=== PATIENT | male | born 1950 | race Caucasian/White ===

== ENCOUNTER → 2017-07-02 15:51 | Outpatient (REF) | payer MEDICARE, OTHER, SELFPAY ==
[2017-07-02 17:11] LABS: Appearance Urine UA CLOUDY; Bilirubin Urine UA NEGATIVE (NEGATIVE); Color Urine UA YELLOW; Glucose Urine UA NEGATIVE (Normal); Ketones Urine UA NEGATIVE (NEGATIVE); Leukocyte Esterase Urine UA 3+ (NEGATIVE); Nitrite Urine UA NEGATIVE (NEGATIVE); Occult Blood Urine UA 1+ (Negative); Protein Urine UA NEGATIVE (Negative); Urobilinogen Urine UA 0.2 E.U./dL (0.2); pH Urine UA 6.5 (4.5-8.0)
[2017-07-02 17:21] LABS: RBC Urine 0-1/HPF (0-5/HPF)
[2017-07-02 17:22] LABS: Bacteria Urine Many (>30); Culture Indicated Urine Specimen Cultured; Squamous Epithelial Cell Urine None Seen; WBC Urine >100/HPF (0-5/HPF)
[2017-07-02 17:36] LABS: BUN Creatinine Ratio 12.2 (6-22); Calcium 9.3 mg/dL (8.4-10.2); Estimated Glomerular Filt Rate 38.1 mL/min (>60); Glucose 81 mg/dL (80-110); HEMOLYSIS < 15 (0-50); Potassium 4.9 mmol/L (3.4-5.1); Sodium 142 mmol/L (137-145)
== END ==
LOC: LAB 15:51
PROVIDERS: Family Provider Family Medicine; PCP Family Medicine; Visit Provider Family Medicine
DX: N39.0 Urinary tract infection, site not specified (principal); N18.9 Chronic kidney disease, unspecified
CPT/HCPCS: 80048; 81001; 87086; 87186

== ENCOUNTER → 2017-07-02 16:04 | Outpatient (CLI) | payer MEDICARE, OTHER, SELFPAY | PROVIDERS: Family Provider Family Medicine; PCP Family Medicine; Visit Provider Family Medicine | DX: N39.0 Urinary tract infection, site not specified (principal); N28.9 Disorder of kidney and ureter, unspecified ==

== ENCOUNTER → 2017-08-06 16:06 | Outpatient (CLI) | payer MEDICARE, SELFPAY ==
[2017-08-06 16:13] LABS: Bacteria Urine None Seen
[2017-08-06 17:04] LABS: Appearance Urine UA CLOUDY; Bilirubin Urine UA NEGATIVE (NEGATIVE); Color Urine UA YELLOW; Glucose Urine UA NEGATIVE (Normal); Ketones Urine UA NEGATIVE (NEGATIVE); Leukocyte Esterase Urine UA 3+ (NEGATIVE); Nitrite Urine UA Negative (Negative); Occult Blood Urine UA TRACE-INTACT (Negative); Protein Urine UA NEGATIVE (Negative); Specific Gravity Urine UA <=1.005 (1.000-1.035); Urobilinogen Urine UA 0.2 E.U./dL (0.2)
[2017-08-06 17:13] LABS: Culture Indicated Urine Specimen Cultured; RBC Urine 1-5/HPF (0-5/HPF); WBC Urine 30-100/HPF (0-5/HPF)
[2017-08-06 17:20] LABS: Blood Urea Nitrogen 23 mg/dL (9-20); Calcium 9.6 mg/dL (8.4-10.2); Carbon Dioxide 25 mmol/L (22-32); Chloride 106 mmol/L (98-107); Estimated Glomerular Filt Rate 31.9 mL/min (>60); Glucose 72 mg/dL (80-110); HEMOLYSIS < 15 (0-50); Potassium 4.8 mmol/L (3.4-5.1); Sodium 142 mmol/L (137-145)
== END ==
PROVIDERS: PCP Family Medicine; Referring Provider Specialist; Visit Provider Family Medicine
DX: N40.1 Benign prostatic hyperplasia with lower urinary tract symptoms (principal); N28.9 Disorder of kidney and ureter, unspecified; N39.0 Urinary tract infection, site not specified
CPT/HCPCS: 36415; 80048; 81001; 84153; 87077; 87086; 87186

== ENCOUNTER 2017-08-08 15:25 | Emergency (ER) | payer MEDICARE, SELFPAY ==
--- NOTE | 2017-08-08 15:32 | ED.MALEGU ---
HPI - Male Genitourinary <LONA Dean - Last Filed: 08/08/17 20:53> General Chief complaint: Urogenital-Male Stated complaint: STATES RETAINING FLUIDS Time Seen by Provider: 08/08/17 15:30 History of Present Illness HPI Narrative: 67-year-old female with history of BPH and also renal insufficiency secondary to the BPH here for complaint of urinary retention over the past several days. He was seen by his primary care provider a couple of days ago with indications of a UTI and decreasing GFR he was sent here by primary care provider for further evaluation and catheter insertion. He is also being treated by Urology with his next appointment being the 18 of August. He denies any urinary symptoms. He does state that he is urinating fine. No dysuria no fevers no chills. Positive p.o. intake no nausea vomiting. The denies any pain to the abdomen or no flank pain. Related Data Previous Rx's Medication Instructions Recorded dutasteride 0.5 mg PO Q DAY #30 cap 05/16/17 ciprofloxacin HCl 500 mg PO BID #14 tab 08/08/17 tamsulosin 0.4 mg capsule 0.8 mg PO BEDTIME #60 cap 08/10/17 Allergies Allergy/AdvReac Type Severity Reaction Status Date / Time No Known Drug Allergies Allergy Verified 08/10/17 19:39 Review of Systems <LONA Dean - Last Filed: 08/08/17 20:53> Constitutional Denies chills, Denies fever(s), Denies lethargy and Denies weakness Eyes Denies change in vision, Denies eye discharge, Denies irritation and Denies loss of vision ENT Ears, Nose, Mouth, and Throat: Denies change in voice, Denies neck pain and Denies sore throat Cardiovascular Denies chest pain, Denies irregular heart rhythm, Denies lightheadedness, Denies palpitations, Denies dyspnea, Denies dyspnea on exertion and Denies orthopnea Respiratory Denies cough, Denies dyspnea, Denies dyspnea on exertion and Denies wheezing Gastrointestinal Gastrointestinal: Denies abdominal pain, Denies change in bowel habits, Denies diarrhea, Denies nausea and Denies vomiting Comments: Urinary retention Genitourinary Comments: Urinary retention Musculoskeletal Denies neck pain Integumentary/Breasts Denies pruritus, Denies erythema, Denies rash and Denies wounds Neurologic Denies confusion, Denies loss of vision and Denies weakness Psychiatric Denies anxiety, Denies confusion, Denies depression, Denies homicidal ideation and Denies suicidal ideation Endocrine Denies palpitations Hematologic/Lymphatic Denies easy bruising Allergic/Immunologic Denies wheezing Exam <LONA Dean - Last Filed: 08/08/17 20:53> Initial Vital Signs Initial Vital Signs: Vital Signs Temperature 98.3 F 08/08/17 15:34 Pulse Rate 79 08/08/17 15:34 Respiratory Rate 15 08/08/17 15:34 Blood Pressure 157/87 H 08/08/17 15:34 Pulse Oximetry 98 08/08/17 15:34 Const General: cooperative and well developed Nutritional Appearance: well nourished Orientation: alert, awake, oriented x3 and not confused HENMT Mouth: oral mucosae normal, oropharynx normal and moist mucous membranes Eyes Conjunctivae: conjunctivae normal Sclera: sclerae normal Pupils: PERRL EOM: EOM intact bilaterally Resp Effort & Inspection: normal respiratory effort, able to speak in complete sentences, no respiratory distress and no use of accessory muscles Auscultation: clear to auscultation bilaterally, no rales, no rhonchi and no wheezes Cardio Rate: regular rate Rhythm: regular rhythm Heart Sounds: no click, no gallops, no murmurs and no rubs GI Inspection: non-distended Palpation: soft, no hepatosplenomegaly, No guarding, No pulsatile mass and No tender Auscultation: normal bowel sounds General: No CVA tenderness Skin General: no rashes or lesions noted, No jaundice and No petechiae <Parish Garcia DO - Last Filed: 08/11/17 08:38> Initial Vital Signs Initial Vital Signs: Vital Signs Temperature 98.3 F 08/08/17 15:34 Pulse Rate 79 08/08/17 15:34 Respiratory Rate 15 08/08/17 15:34 Blood Pressure 157/87 H 08/08/17 15:34 Pulse Oximetry 98 08/08/17 15:34 Course <LONA Dean - Last Filed: 08/08/17 20:53> Orders Ordered: ED Orders 08/08/17 16:25 Urine Culture Stat Urine Microscopic Stat Vital Signs - 8 hr 08/08/17 15:34 Temperature 98.3 F Pulse Rate 79 Respiratory Rate 15 Blood Pressure 157/87 H Pulse Oximetry 98 <Parish Garcia DO - Last Filed: 08/11/17 08:38> Orders Ordered: ED Orders 08/08/17 16:25 Urine Culture Stat Urine Microscopic Stat Vital Signs - 8 hr 08/08/17 15:34 Temperature 98.3 F Pulse Rate 79 Respiratory Rate 15 Blood Pressure 157/87 H Pulse Oximetry 98 MDM - Male Genitourinary <LONA Dean - Last Filed: 08/08/17 20:53> Lab Data Lab Results 08/08/17 Range/Units 16:25 Urine Color Cancelled Urine Appearance Cancelled Urine pH Cancelled Ur Specific [place] Cancelled Urine Protein Cancelled Urine Glucose (UA) Cancelled Urine Ketones Cancelled Urine Occult Blood Cancelled Urine Nitrate Cancelled Urine Bilirubin Cancelled Urine Urobilinogen Cancelled Ur Leukocyte Esterase Cancelled Urine RBC None seen (0-5/HPF) Urine WBC 30-100/hpf H (0-5/HPF) Urine Bacteria Few (2-10) H (None) Ur Culture Indicated? Specimen cultured Micro UA Comment Not Reportable MDM Narrative Medical decision making narrative: Bladder scan was obtained and showed over a liter in the bladder. Urinary catheterization was completed and approximately 1300 mL was drained of dark straw-colored urine. Urinalysis indicates urinary tract infection. Urinalysis from a 2 days ago is still pending for sensitivity. Using culture from a last month shows ciprofloxacin was affective. He is placed on ciprofloxacin. Indwelling catheter with leg bag is provided. He is instructed to follow up with his primary care provider in the next few days in Urology as directed. For any worsening symptoms return to the emergency room. <Parish Garcia DO - Last Filed: 08/11/17 08:38> Lab Data Lab Results 08/08/17 Range/Units 16:25 Urine Color Cancelled Urine Appearance Cancelled Urine pH Cancelled Ur Specific [place] Cancelled Urine Protein Cancelled Urine Glucose (UA) Cancelled Urine Ketones Cancelled Urine Occult Blood Cancelled Urine Nitrate Cancelled Urine Bilirubin Cancelled Urine Urobilinogen Cancelled Ur Leukocyte Esterase Cancelled Urine RBC None seen (0-5/HPF) Urine WBC 30-100/hpf H (0-5/HPF) Urine Bacteria Few (2-10) H (None) Ur Culture Indicated? Specimen cultured Micro UA Comment Not Reportable Discharge Plan Departure Patient Disposition: Home, Self-Care Clinical Impression: Acute retention of urine Discharge Date/Time: 08/08/17 17:32 Interventions: ED Discharge Assessment Last Done: 08/08/17 17:31 Instructions: DI for Urinary Retention in Men Activity Restrictions/Additional Instructions: Bladder scan was completed and shows urinary retention. Urinary catheter was inserted for drainage of the bladder to facilitate good urine flow and not put pressure on the kidneys. Urinalysis indicates urinary tract infection you have been placed on a antibiotic use as directed. Follow up with her primary care provider in the next couple days for re-evaluation. For any worsening symptoms return to the emergency room. Follow up with Urology as directed. Prescription was electronically sent to [facility] Prescriptions: New ciprofloxacin HCl 500 mg tablet 500 mg PO BID Qty: 14 RF: 0 No Action tamsulosin [Flomax] 0.4 mg capsule,extended release 24hr 0.8 mg PO BEDTIME Qty: 60 RF: 0 dutasteride 0.5 MG capsule 0.5 mg PO Q DAY Qty: 30 RF: 3 Referrals: Carlos Head MD [Primary Care Provider] - <Parish Garcia DO - Last Filed: 08/11/17 08:38> Cosign ED Attending Abhishekature Attestation: I was available for consultation during this patient's emergency department encounter
[2017-08-08 15:34] VITALS: BP 157/87; PULSE 79; RESP 15; TEMP 36.8; O2SAT 98; BMI 19.9
[2017-08-08 16:49] LABS: RBC Urine None Seen (0-5/HPF)
[2017-08-08 16:59] LABS: Bacteria Urine Few (2-10); Culture Indicated Urine Specimen Cultured; WBC Urine 30-100/HPF (0-5/HPF)
== END 2017-08-08 17:32 | disposition home or self-care (01) ==
PROVIDERS: Emergency Provider Nurse Practitioner Family; Family Provider Family Medicine; PCP Family Medicine
DX: R33.9 Retention of urine, unspecified (principal)
CPT/HCPCS: 51701; 81003; 81015; 87077; 87086; 87186; 99283

== ENCOUNTER 2017-08-10 19:33 | Emergency (ER) | payer MEDICARE, SELFPAY ==
[2017-08-10 19:39] VITALS: BP 142/88; PULSE 103; RESP 16; TEMP 36.7; O2SAT 100; BMI 19.5
--- NOTE | 2017-08-10 20:09 | ED.MALEGU ---
HPI - Male Genitourinary <Geri Richmond PA-C - Last Filed: 08/10/17 22:59> General Chief complaint: Urogenital-Male Stated complaint: states having complication with catheter Time Seen by Provider: 08/10/17 20:11 Source: patient Mode of arrival: ambulatory Limitations: no limitations History of Present Illness HPI Narrative: This 67-year-old male with a history of BPH and urinary retention comes in today with concerns about catheter problems. He had a catheter placed here 2 days ago due to recurrent urinary retention. He states that this was done in a different position and seem to cause more pain than usual. He had some bleeding on the 1st day which is normal. He states that yesterday he still had a little bit of brownish blood but seemed to be getting better. Today, he states he has just had sort of a sense of pressure around the catheter and urinary urgency when he stands up which is atypical for him. He has a sensation like he is retaining urine but catheter seems to be working. He is not having new flank pain or fever. No nausea or vomiting. He has been eating normally today. He states late this afternoon he started to notice deep red blood coming from the catheter and that is atypical for him, so became concerned and came here. He feels like the catheter is out of place. He thinks that he would like to have this removed and try to leave it out over the weekend. He states that his urinary retention has been much worse when the catheter was left in place for several weeks or more, but usually able to urinate when it has just been in for couple of days. His only other complaint is noticing an area on his left palm that looks a little bit bruised and rough. He denies any trauma Related Data Previous Rx's Medication Instructions Recorded dutasteride 0.5 mg PO Q DAY #30 cap 05/16/17 ciprofloxacin HCl 500 mg PO BID #14 tab 08/08/17 tamsulosin 0.4 mg capsule 0.8 mg PO BEDTIME #60 cap 08/10/17 Allergies Allergy/AdvReac Type Severity Reaction Status Date / Time No Known Drug Allergies Allergy Verified 08/10/17 19:39 Review of Systems <Geri Richmond PA-C - Last Filed: 08/10/17 22:59> Review of Systems All systems reviewed & are unremarkable except as noted in HPI and below Exam <VIVIANA Chowdhury Last Filed: 08/10/17 22:59> Narrative Exam Narrative: GENERAL APPEARANCE: Patient sitting comfortably, in no distress. HEENT: PERRL, EOMI, no scleral icterus NECK: Supple LUNGS: Clear to auscultation bilaterally. HEART: Rate and rhythm regular, normal S1 and S2, no S3 or S4. ABDOMEN: Soft, nontender, nondistended, bowel sounds present x 4 quadrants, no masses palpable, no suprapubic tenderness EXTREMITIES: No edema, no cyanosis DERMATOLOGIC: No jaundice. Left hand appears to have faint ecchymoses over the mid palm, but also skin feels coarse and rough without discrete lesions, none on the right NEUROLOGIC: Alert and oriented with normal speech and coordination Initial Vital Signs Initial Vital Signs: Vital Signs Temperature 98.0 F 08/10/17 19:39 Pulse Rate 103 H 08/10/17 19:39 Respiratory Rate 16 08/10/17 19:39 Blood Pressure 142/88 H 08/10/17 19:39 Pulse Oximetry 100 08/10/17 19:39 <Titus Mcnally DO - Last Filed: 08/11/17 04:33> Initial Vital Signs Initial Vital Signs: Vital Signs Temperature 98.0 F 08/10/17 19:39 Pulse Rate 103 H 08/10/17 19:39 Respiratory Rate 16 08/10/17 19:39 Blood Pressure 142/88 H 08/10/17 19:39 Pulse Oximetry 100 08/10/17 19:39 Course <VIVIANA Chowdhury Last Filed: 08/10/17 22:59> Additional Information: Patient wished to have his catheter removed and reported feeling much better afterwards. He reported the sensation of pressure had resolved. He states he feels like he will be able to urinate but has not yet. He states that he lives a couple of blocks from here and wishes to return home tonight but agrees to return if not able to urinate by morning or if feeling worse again. Vital Signs - 8 hr 08/10/17 21:15 Pulse Rate 89 Respiratory Rate 16 Blood Pressure [Left Arm] 146/89 H Pulse Oximetry 100 <Titus Mcnally DO - Last Filed: 08/11/17 04:33> Vital Signs - 8 hr 08/10/17 21:15 Pulse Rate 89 Respiratory Rate 16 Blood Pressure [Left Arm] 146/89 H Pulse Oximetry 100 Discharge Plan Departure Patient Disposition: Home, Self-Care Clinical Impression: Benign prostatic hyperplasia with urinary retention, Hematuria, Dermatitis Discharge Date/Time: 08/10/17 21:26 Interventions: ED Discharge Assessment Last Done: 08/10/17 21:24 Instructions: DI for Urinary Retention in Men Activity Restrictions/Additional Instructions: Since you are feeling better and wish to return home tonight, it is okay to monitor and see whether your able to urinate, however if you are unable to urinate by morning, please return here as you will need to have the catheter replaced. Please follow-up with your primary care provider as you have already planned as well as with your urologist. It is okay to try your [employer] cream that you have at home for your hand. The skin is very dry and it looks like you might have come in contact with something that irritated skin. You could try a little bit of [id number] hydrocortisone as well. Prescriptions: No Action tamsulosin [Flomax] 0.4 mg capsule,extended release 24hr 0.8 mg PO BEDTIME Qty: 60 RF: 0 dutasteride 0.5 MG capsule 0.5 mg PO Q DAY Qty: 30 RF: 3 ciprofloxacin HCl 500 mg tablet 500 mg PO BID Qty: 14 RF: 0 Referrals: Carlos Head MD [Primary Care Provider] - <Titus Mcnally DO - Last Filed: 08/11/17 04:33> Cosign ED Attending Justyna Attestation: I was immediately available in the department for consultation. Documentation has been reviewed. I agree with assessment and plan.
[2017-08-10 21:15] VITALS: BP 146/89; PULSE 89; RESP 16; O2SAT 100
== END 2017-08-10 21:26 | disposition home or self-care (01) ==
PROVIDERS: Emergency Provider Internal Medicine; Family Provider Family Medicine; PCP Family Medicine
DX: N40.0 Benign prostatic hyperplasia without lower urinary tract symptoms (principal); R33.0 Drug induced retention of urine
CPT/HCPCS: 51798; 99282; 99283

== ENCOUNTER → 2017-08-14 10:20 | Outpatient (CLI) | payer MEDICARE, SELFPAY ==
[2017-08-14 11:37] LABS: Blood Urea Nitrogen 20 mg/dL (9-20); Calcium 9.3 mg/dL (8.4-10.2); Carbon Dioxide 26 mmol/L (22-32); Chloride 106 mmol/L (98-107); Estimated Glomerular Filt Rate 33.7 mL/min (>60); Glucose 96 mg/dL (80-110); HEMOLYSIS < 15 (0-50); Potassium 4.1 mmol/L (3.4-5.1); Sodium 142 mmol/L (137-145)
== END ==
PROVIDERS: PCP Family Medicine; Visit Provider Family Medicine
DX: R33.8 Other retention of urine (principal)
CPT/HCPCS: 36415; 80048

== ENCOUNTER → 2017-08-27 13:37 | Outpatient (CLI) | payer MEDICARE, SELFPAY ==
[2017-08-27 14:47] LABS: Appearance Urine UA SL CLOUDY; Bilirubin Urine UA NEGATIVE (NEGATIVE); Color Urine UA YELLOW; Glucose Urine UA NEGATIVE (Normal); Ketones Urine UA NEGATIVE (NEGATIVE); Leukocyte Esterase Urine UA 2+ (NEGATIVE); Nitrite Urine UA Negative (Negative); Occult Blood Urine UA 1+ (Negative); Protein Urine UA 1+ (Negative); Urobilinogen Urine UA 0.2 E.U./dL (0.2)
[2017-08-27 14:58] LABS: Bacteria Urine Moderate (10-30); RBC Urine 5-10/HPF (0-5/HPF); WBC Urine >100/HPF (0-5/HPF)
[2017-08-27 14:59] LABS: Culture Indicated Urine Specimen Cultured
[2017-08-27 15:35] LABS: Blood Urea Nitrogen 22 mg/dL (9-20); Calcium 9.6 mg/dL (8.4-10.2); Carbon Dioxide 26 mmol/L (22-32); Chloride 109 mmol/L (98-107); Estimated Glomerular Filt Rate 33.7 mL/min (>60); Glucose 92 mg/dL (80-110); HEMOLYSIS < 15 (0-50); Potassium 4.2 mmol/L (3.4-5.1); Sodium 146 mmol/L (137-145)
== END ==
PROVIDERS: PCP Family Medicine; Visit Provider Family Medicine
DX: N39.0 Urinary tract infection, site not specified (principal)
CPT/HCPCS: 36415; 80048; 81001; 87077; 87086; 87147; 87186

== ENCOUNTER → 2017-09-04 13:47 | Outpatient (CLI) | payer MEDICARE, SELFPAY ==
[2017-09-04 13:53] LABS: Bacteria Urine None Seen
[2017-09-04 14:15] LABS: Appearance Urine UA CLEAR; Bilirubin Urine UA NEGATIVE (NEGATIVE); Color Urine UA YELLOW; Glucose Urine UA NEGATIVE (Normal); Ketones Urine UA NEGATIVE (NEGATIVE); Leukocyte Esterase Urine UA 2+ (NEGATIVE); Nitrite Urine UA Negative (Negative); Occult Blood Urine UA 2+ (Negative); Protein Urine UA 1+ (Negative); Specific Gravity Urine UA 1.015 (1.000-1.035); Urobilinogen Urine UA 0.2 E.U./dL (0.2)
[2017-09-04 14:25] LABS: Culture Indicated Urine Specimen Cultured; RBC Urine 1-5/HPF (0-5/HPF); WBC Urine 5-10/HPF (0-5/HPF)
[2017-09-04 14:33] LABS: BUN Creatinine Ratio 7.7 (6-22); Blood Urea Nitrogen 17 mg/dL (9-20); Calcium 9.5 mg/dL (8.4-10.2); Carbon Dioxide 20 mmol/L (22-32); Chloride 106 mmol/L (98-107); Estimated Glomerular Filt Rate 30.2 mL/min (>60); Glucose 96 mg/dL (80-110); HEMOLYSIS < 15 (0-50); Potassium 4.1 mmol/L (3.4-5.1); Sodium 141 mmol/L (137-145)
== END ==
PROVIDERS: Family Provider Family Medicine; PCP Family Medicine; Visit Provider Family Medicine
DX: N39.0 Urinary tract infection, site not specified (principal)
CPT/HCPCS: 36415; 80048; 81001; 87077; 87086; 87186

== ENCOUNTER 2017-09-05 17:06 | Emergency (ER) | payer MEDICARE, SELFPAY ==
--- NOTE | 2017-09-05 17:19 | ED_ITS ---
HPI - Male Genitourinary <LONA Dean - Last Filed: 09/05/17 22:20> General Chief complaint: Urogenital-Male Stated complaint: BLOOD IN URINE/CATH BAG Time Seen by Provider: 09/05/17 17:19 Source: patient Mode of arrival: ambulatory Limitations: no limitations History of Present Illness HPI Narrative: 67-year-old male with history of chronic urinary retention secondary to BPH that is causing have renal failure. He is here for complaint of having blood in Solis catheter that started this afternoon. He is currently being treated by Nephrology and also Urology. Recent antibiotic use over the past week and a half to treat a UTI. He states that he has completed the antibiotic regimen. He denies any flank pain. No fevers no chills. He denies any trauma to the abdomen or flank area. He states that he actually feels pretty well. He states that the bleeding at that he has noticed in his Solis catheter has resolved since he has left his house and came to the emergency room. He denies any tension or pulling on the Solis catheter that may be causing the bleeding Related Data Previous Rx's Medication Instructions Recorded dutasteride 0.5 mg PO Q DAY #30 cap 05/16/17 tamsulosin 0.4 mg capsule 0.8 mg PO BEDTIME #60 cap 08/10/17 cephalexin 1 gram PO BID #14 tab 09/05/17 Allergies Allergy/AdvReac Type Severity Reaction Status Date / Time No Known Drug Allergies Allergy Verified 09/05/17 17:24 Review of Systems <LONA Dean - Last Filed: 09/05/17 22:20> Constitutional Denies chills, Denies fever(s), Denies lethargy and Denies weakness Eyes Denies change in vision, Denies eye discharge, Denies irritation and Denies loss of vision ENT Ears, Nose, Mouth, and Throat: Denies change in voice, Denies neck pain and Denies sore throat Cardiovascular Denies chest pain, Denies irregular heart rhythm, Denies lightheadedness, Denies palpitations, Denies dyspnea, Denies dyspnea on exertion and Denies orthopnea Respiratory Denies cough, Denies dyspnea, Denies dyspnea on exertion and Denies wheezing Gastrointestinal Gastrointestinal: Denies abdominal pain, Denies change in bowel habits, Denies diarrhea, Denies nausea and Denies vomiting Genitourinary Comments: Blood and urine Musculoskeletal Denies neck pain Integumentary/Breasts Denies pruritus, Denies erythema, Denies rash and Denies wounds Neurologic Denies confusion, Denies loss of vision and Denies weakness Psychiatric Denies anxiety, Denies confusion, Denies depression, Denies homicidal ideation and Denies suicidal ideation Endocrine Denies palpitations Hematologic/Lymphatic Denies easy bruising Allergic/Immunologic Denies wheezing Exam <LONA Dean - Last Filed: 09/05/17 22:20> Initial Vital Signs Initial Vital Signs: Vital Signs Temperature 98.9 F 09/05/17 17:22 Pulse Rate 82 09/05/17 17:22 Respiratory Rate 14 09/05/17 17:22 Blood Pressure 168/93 H 09/05/17 17:22 Pulse Oximetry 99 09/05/17 17:22 Const General: cooperative and well developed Nutritional Appearance: well nourished Orientation: alert, awake, oriented x3 and not confused HENMT Face and sinus: sinus tenderness and dry mucous membranes Mouth: oral mucosae normal and moist mucous membranes Throat: tonsils normal and uvula midline Eyes General: appearance normal, both eyes and all related structures Eyelids: eyelids normal Conjunctivae: conjunctivae normal Sclera: sclerae normal Pupils: PERRL EOM: EOM intact bilaterally Resp Effort & Inspection: normal respiratory effort, able to speak in complete sentences, no respiratory distress and no use of accessory muscles Auscultation: clear to auscultation bilaterally, no rales, no rhonchi and no wheezes Cardio Rate: regular rate Rhythm: regular rhythm Heart Sounds: no click, no gallops, no murmurs and no rubs Pulses: normal peripheral pulses GI Inspection: non-distended Palpation: soft, no hepatosplenomegaly, No guarding, No pulsatile mass and No tender Auscultation: normal bowel sounds General: No CVA tenderness Penis: normal penis Meatus: meatus normal Other: Urine with redness in leg bag of a Solis catheter. Able to see clear urine in Solis catheter tubing. Skin General: no rashes or lesions noted, No jaundice and No petechiae Neuro General: alert, oriented x3, gait normal and no focal motor deficits Speech: speech normal <Carly Roman DO - Last Filed: 09/06/17 05:12> Initial Vital Signs Initial Vital Signs: Vital Signs Temperature 98.9 F 09/05/17 17:22 Pulse Rate 82 09/05/17 17:22 Respiratory Rate 14 09/05/17 17:22 Blood Pressure 168/93 H 09/05/17 17:22 Pulse Oximetry 99 09/05/17 17:22 Course <LONA Dean - Last Filed: 09/05/17 22:20> Orders Ordered: ED Orders 09/05/17 17:50 Urinalysis and Microscopic Stat Urine Culture Stat 09/05/17 18:05 Complete Blood Count AUTO DIFF Stat Comprehensive Metabolic Panel Stat Vital Signs - 8 hr 09/05/17 17:22 09/05/17 18:48 09/05/17 19:36 Temperature 98.9 F 97.4 F L Pulse Rate 82 78 67 Respiratory Rate 14 18 Blood Pressure 168/93 H 135/80 H Blood Pressure [Left Arm] 194/79 H Pulse Oximetry 99 96 100 <Carly Roman DO - Last Filed: 09/06/17 05:12> Orders Ordered: ED Orders 09/05/17 17:50 Urinalysis and Microscopic Stat Urine Culture Stat 09/05/17 18:05 Complete Blood Count AUTO DIFF Stat Comprehensive Metabolic Panel Stat Vital Signs - 8 hr 09/05/17 17:22 09/05/17 18:48 09/05/17 19:36 Temperature 98.9 F 97.4 F L Pulse Rate 82 78 67 Respiratory Rate 14 18 Blood Pressure 168/93 H 135/80 H Blood Pressure [Left Arm] 194/79 H Pulse Oximetry 99 96 100 MDM - Male Genitourinary <LONA Dean - Last Filed: 09/05/17 22:20> Lab Data Result diagrams: 09/05/17 18:05 09/05/17 18:05 Lab Results 09/05/17 09/05/17 09/05/17 Range/Units 17:50 18:05 18:05 WBC 6.8 (4.5-11.0) X10^3/uL RBC 3.39 L (4.5-5.9) X10^6/uL Hgb 11.1 L (13.5-17.5) g/dL Hct 32.6 L (41-53) % MCV 96.1 (80-100) fL MCH 32.6 (26-34) PG MCHC 33.9 (30-36) % RDW 13.8 (11.6-14.8) % Plt Count 265 (150-400) X10^3/uL Neut % (Auto) 66.9 (50-75) % Lymph % (Auto) 21.4 L (25-40) % [place] % (Auto) 8.2 (3-14) % Eos % (Auto) 2.5 (2-4) % Baso % (Auto) 1.0 (0-2) % Neut # (Auto) 4600 (3826-8693) /uL Sodium 140 (137-145) mmol/L Potassium 4.7 (3.4-5.1) mmol/L Chloride 106 (98-107) mmol/L Carbon Dioxide 26 (22-32) mmol/L BUN 21 H (9-20) mg/dL Creatinine 2.40 H (0.66-1.25) mg/dL Estimated GFR 27.3 L (>60) mL/min BUN/Creatinine Ratio 8.8 (6-22) Glucose 99 (80-110) mg/dL Calcium 9.6 (8.4-10.2) mg/dL Total Bilirubin 0.5 (0.2-1.3) mg/dL AST 24 (17-59) IU/L ALT 19 L (21-72) IU/L Alkaline Phosphatase 69 (38-126) U/L Total Protein 8.1 (6.3-8.2) g/dL Albumin 4.4 (3.5-5.0) g/dL Globulin 3.7 (1.7-4.1) g/dL Albumin/Globulin Ratio 1.2 (1.0-2.8) Urine Color Yellow Urine Appearance Sl cloudy Urine pH 5.5 (4.5-8.0) Ur Specific [place] 1.015 (1.000-1.035) Urine Protein Negative (Negative) Urine Glucose (UA) Negative (Normal) g/dL Urine Ketones Negative (NEGATIVE) Urine Occult Blood 3+ H (Negative) Urine Nitrate Negative (Negative) Urine Bilirubin Negative (NEGATIVE) Urine Urobilinogen 0.2 (0.2) E.U./dL Ur Leukocyte Esterase 1+ H (NEGATIVE) Urine RBC 10-30/hpf H (0-5/HPF) Urine WBC 1-5/hpf (0-5/HPF) Ur Squamous Epith Cells 0-1 /hpf Urine Bacteria None seen (None) Ur Culture Indicated? Specimen cultured MDM Narrative Medical decision making narrative: CBC shows decreased H&H however is consistent with his prior lab values. Chem panel shows decreased GFR and creatinine however is consistent with his prior lab values. Urinalysis indicates urinary tract infection. Discussed case with Dr. Cruz patient's learning and development consultant who recommended putting patient on antibiotics and was discussed to try Keflex. Patient to follow up with Urology next week and primary care provider in the next couple of days. Solis catheter was changed here in the emergency room for any worsening symptoms return to the emergency room. <Carly Roman, - Last Filed: 09/06/17 05:12> Lab Data Lab Results 09/05/17 09/05/17 09/05/17 Range/Units 17:50 18:05 18:05 WBC 6.8 (4.5-11.0) X10^3/uL RBC 3.39 L (4.5-5.9) X10^6/uL Hgb 11.1 L (13.5-17.5) g/dL Hct 32.6 L (41-53) % MCV 96.1 (80-100) fL MCH 32.6 (26-34) PG MCHC 33.9 (30-36) % RDW 13.8 (11.6-14.8) % Plt Count 265 (150-400) X10^3/uL Neut % (Auto) 66.9 (50-75) % Lymph % (Auto) 21.4 L (25-40) % [place] % (Auto) 8.2 (3-14) % Eos % (Auto) 2.5 (2-4) % Baso % (Auto) 1.0 (0-2) % Neut # (Auto) 4600 (9601-7168) /uL Sodium 140 (137-145) mmol/L Potassium 4.7 (3.4-5.1) mmol/L Chloride 106 (98-107) mmol/L Carbon Dioxide 26 (22-32) mmol/L BUN 21 H (9-20) mg/dL Creatinine 2.40 H (0.66-1.25) mg/dL Estimated GFR 27.3 L (>60) mL/min BUN/Creatinine Ratio 8.8 (6-22) Glucose 99 (80-110) mg/dL Calcium 9.6 (8.4-10.2) mg/dL Total Bilirubin 0.5 (0.2-1.3) mg/dL AST 24 (17-59) IU/L ALT 19 L (21-72) IU/L Alkaline Phosphatase 69 (38-126) U/L Total Protein 8.1 (6.3-8.2) g/dL Albumin 4.4 (3.5-5.0) g/dL Globulin 3.7 (1.7-4.1) g/dL Albumin/Globulin Ratio 1.2 (1.0-2.8) Urine Color Yellow Urine Appearance Sl cloudy Urine pH 5.5 (4.5-8.0) Ur Specific [place] 1.015 (1.000-1.035) Urine Protein Negative (Negative) Urine Glucose (UA) Negative (Normal) g/dL Urine Ketones Negative (NEGATIVE) Urine Occult Blood 3+ H (Negative) Urine Nitrate Negative (Negative) Urine Bilirubin Negative (NEGATIVE) Urine Urobilinogen 0.2 (0.2) E.U./dL Ur Leukocyte Esterase 1+ H (NEGATIVE) Urine RBC 10-30/hpf H (0-5/HPF) Urine WBC 1-5/hpf (0-5/HPF) Ur Squamous Epith Cells 0-1 /hpf Urine Bacteria None seen (None) Ur Culture Indicated? Specimen cultured Discharge Plan Departure Patient Disposition: Home, Self-Care Clinical Impression: [id number] Discharge Date/Time: 09/05/17 19:37 Interventions: ED Discharge Assessment Last Done: 09/05/17 19:36 Instructions: DI for Urinary Tract Infection (UTI) Activity Restrictions/Additional Instructions: Laboratory results show anemia and decreased GFR and increased creatinine as before. Urinalysis indicates urinary tract infection. Discussed case with Nephrology recommends trying a different antibiotic called Keflex. Follow up with her primary care provider the next few days for re-evaluation. Follow up with Urology next week as scheduled. Follow up with Nephrology as scheduled. Catheter was changed in the emergency room today. For any worsening symptoms return to the emergency room. Prescriptions: New cephalexin 500 mg tablet 1 gram PO BID Qty: 14 RF: 0 No Action tamsulosin [Flomax] 0.4 mg capsule,extended release 24hr 0.8 mg PO BEDTIME Qty: 60 RF: 0 dutasteride 0.5 MG capsule 0.5 mg PO Q DAY Qty: 30 RF: 3 Referrals: Carlos Head MD [Primary Care Provider] - <Carly Roman DO - Last Filed: 09/06/17 05:12> Cosign ED Attending Justyna Attestation: I was immediately available in the department for consultation. Documentation has been reviewed. I agree with assessment and plan.
[2017-09-05 17:22] VITALS: BP 168/93; PULSE 82; RESP 14; TEMP 37.2; O2SAT 99
--- NOTE | 2017-09-05 17:55 | PC.NURSE ---
16 fr silicone catheter placed w/ lidocaine jelly premed.
[2017-09-05 18:01] LABS: Appearance Urine UA SL CLOUDY; Bacteria Urine None Seen; Bilirubin Urine UA NEGATIVE (NEGATIVE); Color Urine UA YELLOW; Glucose Urine UA NEGATIVE (Normal); Ketones Urine UA NEGATIVE (NEGATIVE); Leukocyte Esterase Urine UA 1+ (NEGATIVE); Nitrite Urine UA Negative (Negative); Occult Blood Urine UA 3+ (Negative); Protein Urine UA NEGATIVE (Negative); Specific Gravity Urine UA 1.015 (1.000-1.035); Urobilinogen Urine UA 0.2 E.U./dL (0.2); pH Urine UA 5.5 (4.5-8.0)
[2017-09-05 18:14] LABS: Add Manual Diff / Slide Review NO; Eosinophils Percent Auto 2.5 % (2-4); Hematocrit 32.6 % (41-53); Hemoglobin 11.1 g/dL (13.5-17.5); Lymphocytes Percent Auto 21.4 % (25-40); Mean Corpuscular HGB Conc 33.9 % (30-36); Mean Corpuscular Hemoglobin 32.6 PG (26-34); Mean Corpuscular Volume 96.1 fL (80-100); Monocytes Percent Auto 8.2 % (3-14); Neutrophils Absolute Auto 4600 /uL (3000-5900); Neutrophils Percent Auto 66.9 % (50-75); Platelet Count 265 X10^3/uL (150-400); Red Blood Cell Count 3.39 X10^6/uL (4.5-5.9); Red Cell Distribution Width 13.8 % (11.6-14.8); White Blood Cell Count 6.8 X10^3/uL (4.5-11.0)
[2017-09-05 18:28] LABS: Alanine Aminotransferase 19 IU/L (21-72); Albumin 4.4 g/dL (3.5-5.0); Albumin Globulin Ratio 1.2 (1.0-2.8); Alkaline Phosphatase 69 U/L (38-126); Aspartate Aminotransferase 24 IU/L (17-59); BUN Creatinine Ratio 8.8 (6-22); Bilirubin Total 0.5 mg/dL (0.2-1.3); Blood Urea Nitrogen 21 mg/dL (9-20); Calcium 9.6 mg/dL (8.4-10.2); Carbon Dioxide 26 mmol/L (22-32); Chloride 106 mmol/L (98-107); Estimated Glomerular Filt Rate 27.3 mL/min (>60); Globulin 3.7 g/dL (1.7-4.1); Glucose 99 mg/dL (80-110); HEMOLYSIS < 15 (0-50); Potassium 4.7 mmol/L (3.4-5.1); Sodium 140 mmol/L (137-145); Total Protein 8.1 g/dL (6.3-8.2)
[2017-09-05 18:29] LABS: Culture Indicated Urine Specimen Cultured; RBC Urine 10-30/HPF (0-5/HPF); Squamous Epithelial Cell Urine 0-1 /HPF; WBC Urine 1-5/HPF (0-5/HPF)
[2017-09-05 18:48] VITALS: BP 194/79; PULSE 78; RESP 18; O2SAT 96
--- NOTE | 2017-09-05 19:26 | PC.NURSE ---
Report from Nu Dias assisted pt. with changing mckeon bag into leg bag - mckeon bag contained 100 ml. pt. tolerated well.
[2017-09-05 19:36] VITALS: BP 135/80; PULSE 67; TEMP 36.3; O2SAT 100
== END 2017-09-05 19:37 | disposition home or self-care (01) ==
PROVIDERS: Emergency Provider Nurse Practitioner Family; Family Provider Family Medicine; PCP Family Medicine
DX: N39.0 Urinary tract infection, site not specified (principal); N40.0 Benign prostatic hyperplasia without lower urinary tract symptoms; Z92.89 Personal history of other medical treatment
CPT/HCPCS: 36415; 51705; 80053; 81001; 85025; 87077; 87086; 99283

== ENCOUNTER → 2017-09-10 15:29 | Outpatient (CLI) | payer MEDICARE, SELFPAY ==
[2017-09-10 17:25] LABS: Alanine Aminotransferase 17 IU/L (21-72); Albumin 4.1 g/dL (3.5-5.0); Albumin Globulin Ratio 1.2 (1.0-2.8); Alkaline Phosphatase 56 U/L (38-126); Aspartate Aminotransferase 16 IU/L (17-59); BUN Creatinine Ratio 11.7 (6-22); Bilirubin Total 0.2 mg/dL (0.2-1.3); Blood Urea Nitrogen 21 mg/dL (9-20); Calcium 9.4 mg/dL (8.4-10.2); Carbon Dioxide 28 mmol/L (22-32); Chloride 106 mmol/L (98-107); Estimated Glomerular Filt Rate 38.1 mL/min (>60); Globulin 3.5 g/dL (1.7-4.1); Glucose 103 mg/dL (80-110); HEMOLYSIS < 15 (0-50); Potassium 4.6 mmol/L (3.4-5.1); Sodium 143 mmol/L (137-145); Total Protein 7.6 g/dL (6.3-8.2)
[2017-09-10 17:32] LABS: Appearance Urine UA SL CLOUDY; Bilirubin Urine UA NEGATIVE (NEGATIVE); Color Urine UA YELLOW; Glucose Urine UA NEGATIVE (Normal); Ketones Urine UA NEGATIVE (NEGATIVE); Leukocyte Esterase Urine UA 2+ (NEGATIVE); Nitrite Urine UA Negative (Negative); Occult Blood Urine UA 1+ (Negative); Protein Urine UA TRACE (Negative); Urobilinogen Urine UA 0.2 E.U./dL (0.2); pH Urine UA 5.5 (4.5-8.0)
[2017-09-10 17:50] LABS: Bacteria Urine Few (2-10); RBC Urine 0-1/HPF (0-5/HPF); Squamous Epithelial Cell Urine None Seen; WBC Urine 10-30/HPF (0-5/HPF)
[2017-09-10 17:51] LABS: Culture Indicated Urine Specimen Cultured
== END ==
PROVIDERS: Family Provider Family Medicine; PCP Family Medicine; Visit Provider Family Medicine
DX: N39.0 Urinary tract infection, site not specified (principal)
CPT/HCPCS: 36415; 80053; 81001; 87077; 87086; 87186

== ENCOUNTER → 2017-09-17 14:51 | Outpatient (CLI) | payer MEDICARE, SELFPAY ==
[2017-09-17 15:05] LABS: Bacteria Urine None Seen
[2017-09-17 15:49] LABS: Appearance Urine UA CLEAR; Bilirubin Urine UA NEGATIVE (NEGATIVE); Color Urine UA YELLOW; Glucose Urine UA NEGATIVE (Normal); Ketones Urine UA NEGATIVE (NEGATIVE); Leukocyte Esterase Urine UA 1+ (NEGATIVE); Nitrite Urine UA Negative (Negative); Occult Blood Urine UA 2+ (Negative); Protein Urine UA TRACE (Negative); Specific Gravity Urine UA 1.015 (1.000-1.035); Urobilinogen Urine UA 0.2 E.U./dL (0.2); pH Urine UA 5.5 (4.5-8.0)
[2017-09-17 16:00] LABS: Culture Indicated Urine Specimen Cultured; RBC Urine 5-10/HPF (0-5/HPF); WBC Urine 5-10/HPF (0-5/HPF)
[2017-09-17 18:09] LABS: Alanine Aminotransferase 23 IU/L (21-72); Albumin 4.2 g/dL (3.5-5.0); Albumin Globulin Ratio 1.4 (1.0-2.8); Alkaline Phosphatase 59 U/L (38-126); Aspartate Aminotransferase 27 IU/L (17-59); BUN Creatinine Ratio 9.4 (6-22); Bilirubin Total 0.4 mg/dL (0.2-1.3); Blood Urea Nitrogen 17 mg/dL (9-20); Calcium 9.6 mg/dL (8.4-10.2); Carbon Dioxide 27 mmol/L (22-32); Chloride 101 mmol/L (98-107); Estimated Glomerular Filt Rate 38.1 mL/min (>60); Globulin 3.1 g/dL (1.7-4.1); Glucose 143 mg/dL (80-110); HEMOLYSIS < 15 (0-50); Potassium 3.9 mmol/L (3.4-5.1); Sodium 139 mmol/L (137-145); Total Protein 7.3 g/dL (6.3-8.2)
== END ==
PROVIDERS: PCP Family Medicine; Visit Provider Family Medicine
DX: N39.0 Urinary tract infection, site not specified (principal)
CPT/HCPCS: 36415; 80053; 81001; 87086

== ENCOUNTER → 2017-09-24 15:57 | Outpatient (CLI) | payer MEDICARE, MEDICAID, SELFPAY ==
[2017-09-24 17:02] LABS: Bilirubin Urine UA NEGATIVE (NEGATIVE); Color Urine UA YELLOW; Glucose Urine UA NEGATIVE (Normal); Ketones Urine UA NEGATIVE (NEGATIVE); Leukocyte Esterase Urine UA 1+ (NEGATIVE); Nitrite Urine UA Negative (Negative); Occult Blood Urine UA 1+ (Negative); Protein Urine UA NEGATIVE (Negative); Urobilinogen Urine UA 0.2 E.U./dL (0.2); pH Urine UA 6.5 (4.5-8.0)
[2017-09-24 17:19] LABS: Appearance Urine UA Slightly Cloudy; RBC Urine 5-10/HPF (0-5/HPF)
[2017-09-24 17:20] LABS: Amorphous Sediment Urine 1+; Bacteria Urine Few (2-10); Culture Indicated Urine Specimen Cultured; Mucus Urine 1+ (Negative); Squamous Epithelial Cell Urine 0-1 /HPF; WBC Urine 1-5/HPF (0-5/HPF)
[2017-09-24 17:25] LABS: Alanine Aminotransferase 20 IU/L (21-72); Albumin 4.3 g/dL (3.5-5.0); Albumin Globulin Ratio 1.3 (1.0-2.8); Alkaline Phosphatase 64 U/L (38-126); Aspartate Aminotransferase 19 IU/L (17-59); BUN Creatinine Ratio 10.6 (6-22); Bilirubin Total 0.3 mg/dL (0.2-1.3); Blood Urea Nitrogen 19 mg/dL (9-20); Calcium 9.6 mg/dL (8.4-10.2); Carbon Dioxide 27 mmol/L (22-32); Chloride 105 mmol/L (98-107); Estimated Glomerular Filt Rate 38.1 mL/min (>60); Globulin 3.2 g/dL (1.7-4.1); Glucose 94 mg/dL (80-110); HEMOLYSIS < 15 (0-50); Potassium 4.8 mmol/L (3.4-5.1); Sodium 141 mmol/L (137-145); Total Protein 7.5 g/dL (6.3-8.2)
== END ==
PROVIDERS: Family Provider Family Medicine; PCP Family Medicine; Visit Provider Family Medicine
DX: N39.0 Urinary tract infection, site not specified (principal)
CPT/HCPCS: 36415; 80053; 81003; 81015; 87077; 87086; 87186

== ENCOUNTER → 2017-10-01 15:25 | Outpatient (CLI) | payer MEDICARE, MEDICAID, SELFPAY ==
[2017-10-01 15:41] LABS: Appearance Urine UA CLEAR; Bilirubin Urine UA NEGATIVE (NEGATIVE); Color Urine UA YELLOW; Glucose Urine UA NEGATIVE (Normal); Ketones Urine UA NEGATIVE (NEGATIVE); Leukocyte Esterase Urine UA 3+ (NEGATIVE); Nitrite Urine UA Negative (Negative); Occult Blood Urine UA 2+ (Negative); Protein Urine UA 1+ (Negative); Urobilinogen Urine UA 0.2 E.U./dL (0.2); pH Urine UA 6.5 (4.5-8.0)
[2017-10-01 16:02] LABS: Bacteria Urine Moderate (10-30); Culture Indicated Urine Specimen Cultured; RBC Urine 5-10/HPF (0-5/HPF); WBC Urine 30-100/HPF (0-5/HPF)
[2017-10-01 17:22] LABS: BUN Creatinine Ratio 11.2 (6-22); Blood Urea Nitrogen 19 mg/dL (9-20); Calcium 9.3 mg/dL (8.4-10.2); Carbon Dioxide 28 mmol/L (22-32); Chloride 105 mmol/L (98-107); Estimated Glomerular Filt Rate 40.7 mL/min (>60); Glucose 98 mg/dL (80-110); HEMOLYSIS < 15 (0-50); Potassium 4.3 mmol/L (3.4-5.1); Sodium 143 mmol/L (137-145)
== END ==
PROVIDERS: Family Provider Family Medicine; PCP Family Medicine; Visit Provider Family Medicine
DX: N39.0 Urinary tract infection, site not specified (principal)
CPT/HCPCS: 36415; 80048; 81001; 87086; 87186

== ENCOUNTER → 2017-10-08 14:51 | Outpatient (CLI) | payer MEDICARE, MEDICAID, SELFPAY ==
[2017-10-08 15:24] LABS: Appearance Urine UA CLEAR; Bilirubin Urine UA NEGATIVE (NEGATIVE); Color Urine UA YELLOW; Glucose Urine UA NEGATIVE (Normal); Ketones Urine UA NEGATIVE (NEGATIVE); Leukocyte Esterase Urine UA 2+ (NEGATIVE); Nitrite Urine UA Negative (Negative); Occult Blood Urine UA 2+ (Negative); Protein Urine UA 2+ (Negative); Urobilinogen Urine UA 0.2 E.U./dL (0.2); pH Urine UA 7.5 (4.5-8.0)
[2017-10-08 15:56] LABS: Bacteria Urine Occasional (0-1); Culture Indicated Urine Specimen Cultured; RBC Urine 10-30/HPF (0-5/HPF); WBC Urine 10-30/HPF (0-5/HPF)
[2017-10-08 16:39] LABS: Alanine Aminotransferase 17 IU/L (21-72); Albumin Globulin Ratio 1.4 (1.0-2.8); Alkaline Phosphatase 55 U/L (38-126); Aspartate Aminotransferase 16 IU/L (17-59); BUN Creatinine Ratio 12.1 (6-22); Bilirubin Total 0.2 mg/dL (0.2-1.3); Blood Urea Nitrogen 23 mg/dL (9-20); Calcium 9.3 mg/dL (8.4-10.2); Carbon Dioxide 30 mmol/L (22-32); Chloride 105 mmol/L (98-107); Estimated Glomerular Filt Rate 35.8 mL/min (>60); Globulin 2.9 g/dL (1.7-4.1); Glucose 119 mg/dL (80-110); HEMOLYSIS < 15 (0-50); Potassium 4.3 mmol/L (3.4-5.1); Sodium 145 mmol/L (137-145); Total Protein 6.9 g/dL (6.3-8.2)
== END ==
PROVIDERS: Family Provider Family Medicine; PCP Family Medicine; Visit Provider Family Medicine
DX: N39.0 Urinary tract infection, site not specified (principal)
CPT/HCPCS: 80053; 81001; 87077; 87086; 87186

== ENCOUNTER → 2017-10-17 15:06 | Outpatient (CLI) | payer MEDICARE, MEDICAID, SELFPAY ==
[2017-10-17 15:57] LABS: Appearance Urine UA SL CLOUDY; Bilirubin Urine UA NEGATIVE (NEGATIVE); Color Urine UA YELLOW; Glucose Urine UA NEGATIVE (Normal); Ketones Urine UA NEGATIVE (NEGATIVE); Leukocyte Esterase Urine UA 2+ (NEGATIVE); Nitrite Urine UA POSITIVE (Negative); Occult Blood Urine UA 1+ (Negative); Protein Urine UA TRACE (Negative); Urobilinogen Urine UA 0.2 E.U./dL (0.2); pH Urine UA 7.5 (4.5-8.0)
[2017-10-17 16:01] LABS: RBC Urine 1-5/HPF (0-5/HPF); Squamous Epithelial Cell Urine 0-1 /HPF; Transitional Epi Cells Urine 0-1/HPF (0-5/HPF); WBC Urine 5-10/HPF (0-5/HPF)
[2017-10-17 16:02] LABS: Amorphous Sediment Urine 1+; Bacteria Urine Few (2-10); Culture Indicated Urine Specimen Cultured
[2017-10-17 16:11] LABS: Alanine Aminotransferase 18 IU/L (21-72); Albumin 4.4 g/dL (3.5-5.0); Albumin Globulin Ratio 1.3 (1.0-2.8); Alkaline Phosphatase 61 U/L (38-126); Aspartate Aminotransferase 18 IU/L (17-59); BUN Creatinine Ratio 14.4 (6-22); Bilirubin Total 0.3 mg/dL (0.2-1.3); Blood Urea Nitrogen 26 mg/dL (9-20); Calcium 9.4 mg/dL (8.4-10.2); Carbon Dioxide 28 mmol/L (22-32); Chloride 107 mmol/L (98-107); Estimated Glomerular Filt Rate 38.1 mL/min (>60); Globulin 3.4 g/dL (1.7-4.1); Glucose 104 mg/dL (80-110); HEMOLYSIS < 15 (0-50); Potassium 4.4 mmol/L (3.4-5.1); Sodium 144 mmol/L (137-145); Total Protein 7.8 g/dL (6.3-8.2)
== END ==
PROVIDERS: Family Provider Family Medicine; PCP Family Medicine; Visit Provider Family Medicine
DX: N39.0 Urinary tract infection, site not specified (principal); N40.0 Benign prostatic hyperplasia without lower urinary tract symptoms
CPT/HCPCS: 36415; 80053; 81001; 87077; 87086

== ENCOUNTER → 2017-11-05 14:37 | Outpatient (CLI) | payer MEDICARE, MEDICAID, SELFPAY ==
[2017-11-05 15:06] LABS: Bilirubin Urine UA NEGATIVE (NEGATIVE); Color Urine UA YELLOW; Glucose Urine UA NEGATIVE (Normal); Ketones Urine UA NEGATIVE (NEGATIVE); Leukocyte Esterase Urine UA 3+ (NEGATIVE); Nitrite Urine UA Negative (Negative); Occult Blood Urine UA TRACE-INTACT (Negative); Protein Urine UA 1+ (Negative); Urobilinogen Urine UA 0.2 E.U./dL (0.2)
[2017-11-05 15:14] LABS: Appearance Urine UA Slightly Cloudy
[2017-11-05 15:15] LABS: Amorphous Sediment Urine 1+; Bacteria Urine Moderate (10-30); Culture Indicated Urine Specimen Cultured; RBC Urine 0-1/HPF (0-5/HPF); Squamous Epithelial Cell Urine 0-1 /HPF; WBC Urine 30-100/HPF (0-5/HPF)
[2017-11-05 15:22] LABS: BUN Creatinine Ratio 14.7 (6-22); Blood Urea Nitrogen 28 mg/dL (9-20); Calcium 9.7 mg/dL (8.4-10.2); Carbon Dioxide 29 mmol/L (22-32); Chloride 104 mmol/L (98-107); Estimated Glomerular Filt Rate 35.8 mL/min (>60); Glucose 94 mg/dL (80-110); HEMOLYSIS < 15 (0-50); Potassium 4.3 mmol/L (3.4-5.1); Sodium 144 mmol/L (137-145)
== END ==
PROVIDERS: PCP Family Medicine; Visit Provider Family Medicine
DX: R33.9 Retention of urine, unspecified (principal)
CPT/HCPCS: 36415; 80048; 81001; 87077; 87086; 87186

== ENCOUNTER → 2017-11-19 14:42 | Outpatient (CLI) | payer MEDICARE, MEDICAID, SELFPAY ==
[2017-11-19 16:33] LABS: BUN Creatinine Ratio 12.4 (6-22); Blood Urea Nitrogen 21 mg/dL (9-20); Calcium 9.5 mg/dL (8.4-10.2); Carbon Dioxide 30 mmol/L (22-32); Chloride 104 mmol/L (98-107); Estimated Glomerular Filt Rate 40.7 mL/min (>60); Glucose 128 mg/dL (80-110); HEMOLYSIS < 15 (0-50); Potassium 4.5 mmol/L (3.4-5.1); Sodium 143 mmol/L (137-145)
[2017-11-19 19:49] LABS: Appearance Urine UA CLOUDY; Bilirubin Urine UA NEGATIVE (NEGATIVE); Color Urine UA YELLOW; Glucose Urine UA TRACE g/dL (Normal); Ketones Urine UA NEGATIVE (NEGATIVE); Leukocyte Esterase Urine UA 3+ (NEGATIVE); Nitrite Urine UA Negative (Negative); Occult Blood Urine UA TRACE-LYSED (Negative); Protein Urine UA NEGATIVE (Negative); Urobilinogen Urine UA 0.2 E.U./dL (0.2); pH Urine UA 6.5 (4.5-8.0)
[2017-11-19 20:04] LABS: Bacteria Urine Many (>30); Culture Indicated Urine Specimen Cultured; RBC Urine 0-1/HPF (0-5/HPF); Squamous Epithelial Cell Urine 0-1 /HPF; WBC Urine 10-30/HPF (0-5/HPF)
== END ==
PROVIDERS: Family Provider Family Medicine; PCP Family Medicine; Visit Provider Student in an Organized Health Care Education/Training Program
DX: N39.0 Urinary tract infection, site not specified (principal)
CPT/HCPCS: 36415; 80048; 81001; 87077; 87086; 87186

== ENCOUNTER → 2017-12-12 16:49 | Outpatient (CLI) | payer MEDICARE, MEDICAID, SELFPAY ==
[2017-12-12 17:11] LABS: RBC Urine None Seen (0-5/HPF)
[2017-12-12 17:34] LABS: Appearance Urine UA CLEAR; Bilirubin Urine UA NEGATIVE (NEGATIVE); Color Urine UA YELLOW; Glucose Urine UA NEGATIVE (Normal); Ketones Urine UA NEGATIVE (NEGATIVE); Leukocyte Esterase Urine UA TRACE (NEGATIVE); Nitrite Urine UA NEGATIVE (Negative); Occult Blood Urine UA NEGATIVE (Negative); Protein Urine UA NEGATIVE (Negative); Urobilinogen Urine UA 0.2 E.U./dL (0.2); pH Urine UA 5.5 (4.5-8.0)
[2017-12-12 17:42] LABS: Bacteria Urine Occasional (0-1); Culture Indicated Urine Specimen Cultured; Squamous Epithelial Cell Urine 0-1 /HPF; WBC Urine 1-5/HPF (0-5/HPF)
[2017-12-12 17:51] LABS: BUN Creatinine Ratio 12.9 (6-22); Blood Urea Nitrogen 22 mg/dL (9-20); Calcium 9.6 mg/dL (8.4-10.2); Carbon Dioxide 25 mmol/L (22-32); Chloride 106 mmol/L (98-107); Estimated Glomerular Filt Rate 40.7 mL/min (>60); Glucose 74 mg/dL (80-110); HEMOLYSIS < 15 (0-50); Potassium 4.2 mmol/L (3.4-5.1); Sodium 143 mmol/L (137-145)
== END ==
PROVIDERS: Family Provider Family Medicine; PCP Family Medicine; Visit Provider Urology
DX: N40.1 Benign prostatic hyperplasia with lower urinary tract symptoms (principal); N19 Unspecified kidney failure
CPT/HCPCS: 36415; 80048; 81001; 87086

== ENCOUNTER → 2018-04-29 16:17 | Outpatient (CLI) | payer MEDICARE, MEDICAID, SELFPAY ==
[2018-04-29 16:28] LABS: RBC Urine None Seen (0-5/HPF)
[2018-04-29 16:38] LABS: Appearance Urine UA CLEAR; Bilirubin Urine UA NEGATIVE (NEGATIVE); Color Urine UA YELLOW; Glucose Urine UA NEGATIVE (Negative); Ketones Urine UA NEGATIVE (NEGATIVE); Leukocyte Esterase Urine UA 3+ (NEGATIVE); Nitrite Urine UA NEGATIVE (Negative); Occult Blood Urine UA NEGATIVE (Negative); Protein Urine UA NEGATIVE (Negative); Urobilinogen Urine UA 0.2 E.U./dL (0.2); pH Urine UA 6.5 (4.5-8.0)
[2018-04-29 17:26] LABS: Bacteria Urine Few (2-10); Culture Indicated Urine Specimen Cultured; Squamous Epithelial Cell Urine None Seen; WBC Urine 10-30/HPF (0-5/HPF)
[2018-04-29 19:07] LABS: BUN Creatinine Ratio 14.8 (6-22); Blood Urea Nitrogen 31 mg/dL (9-20); Calcium 9.7 mg/dL (8.4-10.2); Carbon Dioxide 27 mmol/L (22-32); Chloride 105 mmol/L (98-107); Estimated Glomerular Filt Rate 31.8 mL/min (>60); Glucose 91 mg/dL (80-110); HEMOLYSIS < 15 (0-50); Potassium 5.2 mmol/L (3.4-5.1); Sodium 142 mmol/L (137-145)
== END ==
PROVIDERS: PCP Family Medicine; Visit Provider Family Medicine
DX: N18.3 Chronic kidney disease, stage 3 (moderate) (principal); N40.1 Benign prostatic hyperplasia with lower urinary tract symptoms
CPT/HCPCS: 36415; 80048; 81001; 87077; 87086; 87186

== ENCOUNTER → 2018-05-30 15:44 | Outpatient (CLI) | payer MEDICARE, MEDICAID, SELFPAY ==
[2018-05-30 16:13] LABS: Bacteria Urine None Seen; RBC Urine None Seen (0-5/HPF)
[2018-05-30 17:58] LABS: Appearance Urine UA CLEAR; Bilirubin Urine UA NEGATIVE (NEGATIVE); Color Urine UA YELLOW; Glucose Urine UA NEGATIVE (Negative); Ketones Urine UA NEGATIVE (NEGATIVE); Leukocyte Esterase Urine UA TRACE (NEGATIVE); Nitrite Urine UA NEGATIVE (Negative); Occult Blood Urine UA NEGATIVE (Negative); Protein Urine UA NEGATIVE (Negative); Urobilinogen Urine UA 0.2 E.U./dL (0.2)
[2018-05-30 18:37] LABS: BUN Creatinine Ratio 12.7 (6-22); Blood Urea Nitrogen 28 mg/dL (9-20); Calcium 9.5 mg/dL (8.4-10.2); Carbon Dioxide 24 mmol/L (22-32); Chloride 106 mmol/L (98-107); Estimated Glomerular Filt Rate 30.1 mL/min (>60); Glucose 82 mg/dL (80-110); HEMOLYSIS < 15 (0-50); Potassium 4.5 mmol/L (3.4-5.1); Sodium 141 mmol/L (137-145)
[2018-05-30 18:47] LABS: Culture Indicated Urine Specimen Cultured; WBC Urine 1-5/HPF (0-5/HPF)
== END ==
PROVIDERS: PCP Family Medicine; Visit Provider Family Medicine
DX: N18.3 Chronic kidney disease, stage 3 (moderate) (principal); N13.9 Obstructive and reflux uropathy, unspecified; N39.0 Urinary tract infection, site not specified
CPT/HCPCS: 36415; 80048; 81001; 87086

== ENCOUNTER → 2018-07-12 14:12 | Outpatient (CLI) | payer MEDICARE, MEDICAID, SELFPAY ==
[2018-07-12 14:22] LABS: RBC Urine None Seen (0-5/HPF)
[2018-07-12 14:39] LABS: Appearance Urine UA CLEAR; Bilirubin Urine UA NEGATIVE (NEGATIVE); Color Urine UA YELLOW; Glucose Urine UA NEGATIVE (Negative); Ketones Urine UA NEGATIVE (NEGATIVE); Leukocyte Esterase Urine UA 1+ (NEGATIVE); Nitrite Urine UA NEGATIVE (Negative); Occult Blood Urine UA NEGATIVE (Negative); Protein Urine UA NEGATIVE (Negative); Specific Gravity Urine UA 1.015 (1.000-1.035); Urobilinogen Urine UA 0.2 E.U./dL (0.2)
[2018-07-12 14:53] LABS: Amorphous Sediment Urine 1+; Bacteria Urine Occasional (0-1); Culture Indicated Urine Specimen Cultured; WBC Urine 5-10/HPF (0-5/HPF)
[2018-07-12 14:56] LABS: BUN Creatinine Ratio 11.3 (6-22); Blood Urea Nitrogen 27 mg/dL (9-20); Calcium 9.5 mg/dL (8.4-10.2); Carbon Dioxide 27 mmol/L (22-32); Chloride 106 mmol/L (98-107); Estimated Glomerular Filt Rate 27.2 mL/min (>60); Glucose 107 mg/dL (80-110); HEMOLYSIS < 15 (0-50); Potassium 4.7 mmol/L (3.4-5.1); Sodium 140 mmol/L (137-145)
== END ==
PROVIDERS: PCP Family Medicine; Visit Provider Family Medicine
DX: N18.3 Chronic kidney disease, stage 3 (moderate) (principal); R33.9 Retention of urine, unspecified
CPT/HCPCS: 36415; 80048; 81001; 87086

== ENCOUNTER → 2018-12-03 13:22 | Outpatient (CLI) | payer MEDICARE, MEDICAID, SELFPAY ==
[2018-12-03 13:32] LABS: Bacteria Urine None Seen
[2018-12-03 14:48] LABS: Appearance Urine UA CLEAR; Bilirubin Urine UA NEGATIVE (NEGATIVE); Color Urine UA YELLOW; Glucose Urine UA NEGATIVE (Negative); Ketones Urine UA NEGATIVE (NEGATIVE); Leukocyte Esterase Urine UA 2+ (NEGATIVE); Nitrite Urine UA NEGATIVE (Negative); Occult Blood Urine UA NEGATIVE (Negative); Protein Urine UA NEGATIVE (Negative); Specific Gravity Urine UA <=1.005 (1.000-1.035); Urobilinogen Urine UA 0.2 E.U./dL (0.2)
[2018-12-03 14:52] LABS: Blood Urea Nitrogen 42 mg/dL (9-20); Calcium 9.9 mg/dL (8.4-10.2); Carbon Dioxide 20 mmol/L (22-32); Chloride 109 mmol/L (98-107); Estimated Glomerular Filt Rate 17.6 mL/min (>60); Glucose 134 mg/dL (80-110); HEMOLYSIS < 15 (0-50); Potassium 4.5 mmol/L (3.4-5.1); Sodium 142 mmol/L (137-145)
[2018-12-03 15:08] LABS: Culture Indicated Urine Specimen Cultured; RBC Urine 0-1/HPF (0-5/HPF); WBC Urine 30-100/HPF (0-5/HPF)
== END ==
PROVIDERS: PCP Family Medicine; Visit Provider Family Medicine
DX: N13.9 Obstructive and reflux uropathy, unspecified (principal); N39.0 Urinary tract infection, site not specified; N18.3 Chronic kidney disease, stage 3 (moderate)
CPT/HCPCS: 36415; 80048; 81001; 87086

== ENCOUNTER 2018-12-08 13:45 | Emergency (ER) | payer MEDICARE, MEDICAID, SELFPAY ==
[2018-12-08 13:50] VITALS: BP 194/102; PULSE 85; RESP 17; TEMP 36.6; O2SAT 98
[2018-12-08 14:34] LABS: RBC Urine None Seen (0-5/HPF)
[2018-12-08 14:46] LABS: Amorphous Sediment Urine 1+; Squamous Epithelial Cell Urine 0-1 /HPF (0-5/HPF); WBC Urine 10-30/HPF (0-5/HPF)
[2018-12-08 14:47] LABS: Bacteria Urine Few (2-10); Culture Indicated Urine Specimen Cultured
[2018-12-08 15:59] LABS: Add Manual Diff / Slide Review NO; Basophils Absolute Auto 100 /uL (0-100); Basophils Percent Auto 0.8 % (0-2); Eosinophils Absolute Auto 200 /uL (0-450); Eosinophils Percent Auto 2.2 % (2-4); Hematocrit 35.3 % (41-53); Hemoglobin 12.2 g/dL (13.5-17.5); Lymphocytes Absolute Auto 2100 /uL (1100-4500); Lymphocytes Percent Auto 26.4 % (25-40); Mean Corpuscular HGB Conc 34.6 % (30-36); Mean Corpuscular Hemoglobin 34.3 PG (26-34); Monocytes Absolute Auto 600 /uL (0-900); Monocytes Percent Auto 7.2 % (3-14); Neutrophils Absolute Auto 5100 /uL (1500-7000); Neutrophils Percent Auto 63.4 % (50-75); Platelet Count 246 X10^3/uL (150-400); Red Blood Cell Count 3.57 X10^6/uL (4.5-5.9); Red Cell Distribution Width 12.5 % (11.6-14.8)
[2018-12-08 16:12] LABS: Alanine Aminotransferase 17 IU/L (21-72); Albumin Globulin Ratio 1.3 (1.0-2.8); Alkaline Phosphatase 79 U/L (38-126); Aspartate Aminotransferase 19 IU/L (17-59); BUN Creatinine Ratio 14.4 (6-22); Bilirubin Total 0.5 mg/dL (0.2-1.3); Blood Urea Nitrogen 49 mg/dL (9-20); Carbon Dioxide 23 mmol/L (22-32); Chloride 110 mmol/L (98-107); Estimated Glomerular Filt Rate 18.2 mL/min (>60); Globulin 3.9 g/dL (1.7-4.1); Glucose 97 mg/dL (80-110); HEMOLYSIS < 15 (0-50); Sodium 145 mmol/L (137-145); Total Protein 8.9 g/dL (6.3-8.2)
[2018-12-08 16:17] VITALS: BP 189/96; PULSE 65; RESP 17; O2SAT 96
[2018-12-08] MEDS: SODIUM CHLORIDE 0.9% 1,000 ML 1000 ML IV (16:37)
--- NOTE | 2018-12-08 16:41 | DI.CT.S_ITS ---
PROCEDURE: CT KIDNEY URETER BLADDER (KUB) INDICATIONS: decreased Kidney fx, not feeling well, hx of urinary retenti TECHNIQUE: Noncontrast 5 mm thick sections acquired from the diaphragms to the symphysis. 5 mm thick coronal and sagittal reformats were then performed. For radiation dose reduction, the following was used: automated exposure control, adjustment of mA and/or kV according to patient size. COMPARISON: [facility], RF, CYSTOGRAM, 12/01/2016, 9:31. [facility], CT, KIDNEY/ URETER/BLADDER, 11/04/2016, 9:20. [facility], CT, KIDNEY/ URETER/BLADDER, 01/02/2017, 14:15. FINDINGS: Image quality: Excellent. Lung bases: Lung bases are clear. Heart size is normal. Urinary system: There is severe bilateral hydronephrosis. Bilateral mild perinephric fat stranding can be seen. Both kidneys are normal in size. No kidney stones. Incidental note is made of a retroaortic left renal vein. Postoperative change can be seen involving the base of the bladder at the level of the prostate. The urinary bladder is grossly enlarged, measuring 18 cm craniocaudally. A small posterior bladder diverticulum is again seen, as on series 2 image 63. Other solid organs: Liver is normal in size. Water density cysts can be seen within the liver. Gallbladder demonstrates a layering gallstone. Pancreas is normal in contours. Spleen is normal in size. No adrenal nodules. Peritoneum and bowel: Unenhanced bowel loops demonstrate normal wall thickness and caliber. No free fluid or air. Nodes and vessels: No retroperitoneal or mesenteric adenopathy by size criteria. Aorta and inferior vena cava are normal in caliber. Atherosclerotic calcification is noted. Abdominal wall: No ventral hernias. Pelvis: No free pelvic fluid. No inguinal hernias or adenopathy. Bones: No suspicious bony lesions. No vertebral body compression fractures. Degenerative changes are seen, which are most prominent involving the lower lumbar spine and the hips. Mild dextroconvex scoliotic curvature is seen. IMPRESSION: Severe bilateral hydronephrosis and a grossly dilated bladder. Bladder outlet obstruction is presumed. The hydronephrosis is more prominent on the current study than in 2017. No ureteral stones or kidney stones are seen. Incidental note is made of: Gallstone Liver cysts Retroaortic left renal vein Prostate postoperative change Dictated by: Orion BishopD. on 12/08/2018 at 16:15 Approved by: Usama Arambula M.D. on 12/08/2018 at 16:19
--- NOTE | 2018-12-08 16:58 | ED.MALEGU ---
HPI - Male Genitourinary <LONA Siddiqi - Last Filed: 12/09/18 11:47> General Chief complaint: Urogenital-Male Stated complaint: Urinary issues Time Seen by Provider: 12/08/18 14:12 Source: patient Mode of arrival: Ambulatory Limitations: no limitations History of Present Illness HPI Narrative: This is a 68-year-old gentleman, smoker, who presents to ED with generalized not feeling well, weight loss of 5 lb over a week, feeling tired with low energy, bilateral flank pain for 2 weeks. Patient denies urinary retention feeling, urinary symptoms such as urgency, frequency, burning. Patient denies fever, chills, nausea or vomiting, chest pain or breathing difficulty. Patient called his primary care physician Dr. Carlos Head and had recent labs drawn on December 03 and noticed increased GFR and creatinine along blood pressure. Two years ago, patient had severe urinary retention and kidney failure and had urinary catheter in placed for a year, Pseudomonas infection. Patient received urolift procedure at [facility] due to enlarged prostate but is not able to see at the clinic until he has payment issues resolved. Patient reports he has follow-up appointment with Dr. Head in 2 days. Patient also reports his baseline kidney function is at creatinine as 2.7 with GFR 30's as low as. Related Data Home Medications Medication Instructions Recorded Confirmed docusate sodium 250 mg PO [id number] 12/11/18 12/11/18 dutasteride [Avodart] 0.5 mg PO DAILY 12/11/18 12/11/18 Allergies Allergy/AdvReac Type Severity Reaction Status Date / Time No Known Drug Allergies Allergy Verified 12/09/18 16:20 Review of Systems <LONA Siddiqi - Last Filed: 12/09/18 11:47> Review of Systems Narrative: General: See HPI HEENT: Denies sinus pain, ear pain, sore throat, difficulty swallowing, dizziness. Respiratory: Denies dyspnea, cough, wheezing, hemoptysis, sputum. Cardiovascular: Denies chest pain, palpitations, orthopnea, edema. Gastrointestinal: Denies nausea, vomiting, abdominal pain, diarrhea, constipation, melena. : See HPI Musculoskeletal: Denies weakness, joint pain or bony pain. Skin: Denies rash, skin lesions, or other. Neurologic: Denies weakness, headache, numbness, change in speech, confusion, seizures, incoordination. Psychiatric: No concerning psychosocial issues. 12-point review of systems is negative except for those stated above. Patient History <LONA Siddiqi - Last Filed: 12/09/18 11:47> Medical History BPH (benign prostatic hyperplasia) (Chronic) Enlarged prostate (Chronic ~12/2016) Foot pain (Resolved 2015) Hydronephrosis (Chronic) Onychomycosis (Chronic 10/2015) Recurrent UTI (Chronic) Renal failure (Acute) Renal insufficiency (Chronic 01/01/17) Shoulder pain (Chronic ~2005) Surgical History No history of previous surgery (Chronic) S/P urological surgery (Chronic) Family History Father No problems noted. Mother No problems noted. Social History marital status: unmarried,single household members: children lives independently: Yes Smoking Status: Current every day smoker alcohol intake: never substance use type: does not use tobacco type: cigarettes alcohol intake frequency: 0-2 drinks per day Substance Use Type: marijuana Exam <LONA Siddiqi - Last Filed: 12/09/18 11:47> Narrative Exam Narrative: GEN: Alert, oriented x 3, well appearing and nourished, and in no acute distress. Head: Normal cephalic, atraumatic. No scalp or temporal tenderness, palpable mass or rash. EYES: Pupils are equal, round, and reactive to light and accommodation. Extraocular muscles are intact bilaterally. There is no subconjunctival hemorrhage, exudate and sclera non-icteric. Neck: Trachea in midline. No JVD, non-tender without lymphadenopathy. No masses or thyroid megaly. Supple, non-tender and no meningeal signs. CARDIAC: Normal regular rate and rhythm without murmurs, gallops, or rubs. No chest wall tenderness. No peripheral edema, cyanosis or pallor. Capillary refill is less than 2 seconds. RESPIRATORY: Lungs are clear to auscultate bilaterally. No cough, wheezes, rales, or rhonchi. No stridor, respiratory distress, increase work of breathing, or accessary muscle used. ABD: Abdomen soft, nontender and small lower abdomen distension. No guarding or rebound tenderness to palpate. Bowel sounds are normal in all 4 quadrants. There is no palpable masses or organomegaly. EXT: Clubbing in bilateral fingers. Full painless ROM of all extremities with no loss of sensation, strength, effusion or edema. SKIN: Warm, dry, normal color for patient. No erythema, lesions or rash over visible areas. BACK: Nontender without deformity or crepitance. No flank tenderness. NEUROLOGICAL: Alert and oriented to place, time and person. Sensation and motor function intact bilaterally. No facial droops, dysphasia. PSYCHIATRIC: Good judgement and reason, without hallucinations, abnormal affect or abnormal behaviors during the examination. Initial Vital Signs Initial Vital Signs: Vital Signs Temperature 97.8 F 12/08/18 13:50 Pulse Rate 85 12/08/18 13:50 Respiratory Rate 17 12/08/18 13:50 Blood Pressure 194/102 H 12/08/18 13:50 Pulse Oximetry 98 12/08/18 13:50 <Svetlana Bhakta DO - Last Filed: 12/13/18 18:09> Initial Vital Signs Initial Vital Signs: Vital Signs Temperature 97.8 F 12/08/18 13:50 Pulse Rate 85 12/08/18 13:50 Respiratory Rate 17 12/08/18 13:50 Blood Pressure 194/102 H 12/08/18 13:50 Pulse Oximetry 98 12/08/18 13:50 Scores <LONA Siddiqi - Last Filed: 12/09/18 11:47> GCS Sherwood coma scale eye opening: Spontaneous Kavya coma scale verbal response: Orientated Kavya coma scale motor response: Obey commands Kavya coma scale total score: 15 Course <LONA Siddiqi - Last Filed: 12/09/18 11:47> Orders Ordered: Discontinued Medications Sodium Chloride (Normal Saline 0.9%) 1,000 mls @ 1,000 mls/hr IV BOLUS ONE Stop: 12/08/18 17:31 Last Infusion: 12/08/18 17:45 Dose: 0 mls/hr Documented by: Admin: 12/08/18 16:37 Dose: 1,000 mls/hr Documented by: BERHANE Ceftriaxone Sodium/Dextrose (Rocephin) 1 gm in 50 mls @ 100 mls/hr IV NOW ONE Stop: 12/08/18 19:13 Last Infusion: 12/08/18 19:35 Dose: 0 mls/hr Documented by: Admin: 12/08/18 18:58 Dose: 100 mls/hr Documented by: BERHANE Lidocaine HCl (Urojet) 5 ml TOP NOW ONE Stop: 12/08/18 17:43 Last Admin: 12/08/18 17:57 Dose: 5 ml Documented by: VIRGIL Consultations Consultation #1: Dr. Medel-IV antibiotic medication and mckeon catheter for urinary retention Time: 18:35 Vital Signs Vital signs: Vital Signs - 8 hr 12/08/18 13:50 12/08/18 16:17 12/08/18 18:00 Temperature 97.8 F Pulse Rate 85 65 64 Respiratory Rate 17 17 16 Blood Pressure 194/102 H Blood Pressure [Right Arm] 189/96 H 150/90 H Pulse Oximetry 98 96 100 12/08/18 19:57 Temperature 97.5 F L Pulse Rate 88 Respiratory Rate 20 Blood Pressure Blood Pressure [Right Arm] 167/97 H Pulse Oximetry 96 <Svetlana Bhakta DO - Last Filed: 12/13/18 18:09> Orders Ordered: Discontinued Medications Sodium Chloride (Normal Saline 0.9%) 1,000 mls @ 1,000 mls/hr IV BOLUS ONE Stop: 12/08/18 17:31 Last Infusion: 12/08/18 17:45 Dose: 0 mls/hr Documented by: Admin: 12/08/18 16:37 Dose: 1,000 mls/hr Documented by: BERHANE Ceftriaxone Sodium/Dextrose (Rocephin) 1 gm in 50 mls @ 100 mls/hr IV NOW ONE Stop: 12/08/18 19:13 Last Infusion: 12/08/18 19:35 Dose: 0 mls/hr Documented by: Admin: 12/08/18 18:58 Dose: 100 mls/hr Documented by: BERHANE Lidocaine HCl (Urojet) 5 ml TOP NOW ONE Stop: 12/08/18 17:43 Last Admin: 12/08/18 17:57 Dose: 5 ml Documented by: VIRGIL Vital Signs Vital signs: Vital Signs - 8 hr 12/08/18 13:50 12/08/18 16:17 12/08/18 18:00 Temperature 97.8 F Pulse Rate 85 65 64 Respiratory Rate 17 17 16 Blood Pressure 194/102 H Blood Pressure [Right Arm] 189/96 H 150/90 H Pulse Oximetry 98 96 100 12/08/18 19:57 Temperature 97.5 F L Pulse Rate 88 Respiratory Rate 20 Blood Pressure Blood Pressure [Right Arm] 167/97 H Pulse Oximetry 96 MDM - Male Genitourinary <LONA Siddiqi - Last Filed: 12/09/18 11:47> Differential Diagnosis Differential diagnosis: Likely urinary tract infection, acute retention of urine and other (Chronic kidney disease, kidney stone, obstructed kidney stones) Medical Records Attestation: I reviewed the patient's medical records. Lab Data Attestation: I reviewed the patient's lab results. Result diagrams: 12/08/18 15:56 12/08/18 18:53 Labs: Lab Results 12/08/18 12/08/18 12/08/18 Range/Units 14:32 15:56 15:56 WBC 8.0 (4.5-11.0) X10^3/uL RBC 3.57 L (4.5-5.9) X10^6/uL Hgb 12.2 L (13.5-17.5) g/dL Hct 35.3 L (41-53) % MCV 99.0 (80-100) fL MCH 34.3 H (26-34) PG MCHC 34.6 (30-36) % RDW 12.5 (11.6-14.8) % Plt Count 246 (150-400) X10^3/uL Neut % (Auto) 63.4 (50-75) % Lymph % (Auto) 26.4 (25-40) % [place] % (Auto) 7.2 (3-14) % Eos % (Auto) 2.2 (2-4) % Baso % (Auto) 0.8 (0-2) % Neut # (Auto) 5100 (6738-3285) /uL Lymph # (Auto) 2100 (8001-2437) /uL [place] # (Auto) 600 (0-900) /uL Eos # (Auto) 200 (0-450) /uL Baso # (Auto) 100 (0-100) /uL Sodium 145 (137-145) mmol/L Potassium 4.0 (3.4-5.1) mmol/L Chloride 110 H (98-107) mmol/L Carbon Dioxide 23 (22-32) mmol/L BUN 49 H (9-20) mg/dL Creatinine 3.40 H (0.66-1.25) mg/dL Estimated GFR 18.2 L (>60) mL/min BUN/Creatinine Ratio 14.4 (6-22) Glucose 97 (80-110) mg/dL Calcium 10.0 (8.4-10.2) mg/dL Total Bilirubin 0.5 (0.2-1.3) mg/dL AST 19 (17-59) IU/L ALT 17 L (21-72) IU/L Alkaline Phosphatase 79 (38-126) U/L Total Protein 8.9 H (6.3-8.2) g/dL Albumin 5.0 (3.5-5.0) g/dL Globulin 3.9 (1.7-4.1) g/dL Albumin/Globulin Ratio 1.3 (1.0-2.8) Urine RBC None seen (0-5/HPF) Urine WBC 10-30/hpf H (0-5/HPF) Ur Squamous Epith Cells 0-1 /hpf (0-5/HPF) Amorphous Sediment 1+ Urine Bacteria Few (2-10) H (None) Ur Culture Indicated? Specimen cultured 12/08/18 Range/Units 18:53 WBC (4.5-11.0) X10^3/uL RBC (4.5-5.9) X10^6/uL Hgb (13.5-17.5) g/dL Hct (41-53) % MCV (80-100) fL MCH (26-34) PG MCHC (30-36) % RDW (11.6-14.8) % Plt Count (150-400) X10^3/uL Neut % (Auto) (50-75) % Lymph % (Auto) (25-40) % [place] % (Auto) (3-14) % Eos % (Auto) (2-4) % Baso % (Auto) (0-2) % Neut # (Auto) (9498-1739) /uL Lymph # (Auto) (7667-1141) /uL [place] # (Auto) (0-900) /uL Eos # (Auto) (0-450) /uL Baso # (Auto) (0-100) /uL Sodium 142 (137-145) mmol/L Potassium 4.4 (3.4-5.1) mmol/L Chloride 114 H (98-107) mmol/L Carbon Dioxide 21 L (22-32) mmol/L BUN 48 H (9-20) mg/dL Creatinine 3.20 H (0.66-1.25) mg/dL Estimated GFR 19.5 L (>60) mL/min BUN/Creatinine Ratio 15.0 (6-22) Glucose 129 H (80-110) mg/dL Calcium 9.2 (8.4-10.2) mg/dL Total Bilirubin (0.2-1.3) mg/dL AST (17-59) IU/L ALT (21-72) IU/L Alkaline Phosphatase (38-126) U/L Total Protein (6.3-8.2) g/dL Albumin (3.5-5.0) g/dL Globulin (1.7-4.1) g/dL Albumin/Globulin Ratio (1.0-2.8) Urine RBC (0-5/HPF) Urine WBC (0-5/HPF) Ur Squamous Epith Cells (0-5/HPF) Amorphous Sediment Urine Bacteria (None) Ur Culture Indicated? Urine Dip Bedside Urine Glucose Negative Bedside Urine Bilirubin - Negative Bedside Urine Ketone - Negative Urine Specific [place] 1.010 Bedside Urine Occult Blood - Negative Bedside Urine pH 6.0 Bedside Urine Protein - Negative Bedside Urine Urobilinogen - Negative Bedside Urine Nitrite - Negative Bedside Urine Leukocytes +++ [address]-KUB: Radiologist's impression: [address] [address] [address] Scan Report Signed Patient: Segun Turcios RMR#: [id number] : 2Acct:[id number] Age/Sex: 68 / MDate of Service: 12/08/18 Loc: ED Accession Number: [id number] Procedure: CT kidney ureter bladder (KUB) Ordering Provider: Mark Ruby PROCEDURE: CT KIDNEY URETER BLADDER (KUB) INDICATIONS: decreased Kidney fx, not feeling well, hx of urinary retenti TECHNIQUE: Noncontrast 5 mm thick sections acquired from the diaphragms to the symphysis. 5 mm thick coronal and sagittal reformats were then performed. For radiation dose reduction, the following was used: automated exposure control, adjustment of mA and/or kV according to patient size. COMPARISON: [facility], RF, CYSTOGRAM, 12/01/2016, 9:31. [facility], CT, KIDNEY/ URETER/BLADDER, 11/04/2016, 9:20. [facility], CT, KIDNEY/ URETER/BLADDER, 01/02/2017, 14:15. FINDINGS: Image quality: Excellent. Lung bases: Lung bases are clear. Heart size is normal. Urinary system: There is severe bilateral hydronephrosis. Bilateral mild perinephric fat stranding can be seen. Both kidneys are normal in size. No kidney stones. Incidental note is made of a retroaortic left renal vein. Postoperative change can be seen involving the base of the bladder at the level of the prostate. The urinary bladder is grossly enlarged, measuring 18 cm craniocaudally. A small posterior bladder diverticulum is again seen, as on series 2 image 63. Other solid organs: Liver is normal in size. Water density cysts can be seen within the liver. Gallbladder demonstrates a layering gallstone. Pancreas is normal in contours. Spleen is normal in size. No adrenal nodules. Peritoneum and bowel: Unenhanced bowel loops demonstrate normal wall thickness and caliber. No free fluid or air. Nodes and vessels: No retroperitoneal or mesenteric adenopathy by size criteria. Aorta and inferior vena cava are normal in caliber. Atherosclerotic calcification is noted. Abdominal wall: No ventral hernias. Pelvis: No free pelvic fluid. No inguinal hernias or adenopathy. Bones: No suspicious bony lesions. No vertebral body compression fractures. Degenerative changes are seen, which are most prominent involving the lower lumbar spine and the hips. Mild dextroconvex scoliotic curvature is seen. IMPRESSION: Severe bilateral hydronephrosis and a grossly dilated bladder. Bladder outlet obstruction is presumed. The hydronephrosis is more prominent on the current study than in 2017. No ureteral stones or kidney stones are seen. Incidental note is made of: Gallstone Liver cysts Retroaortic left renal vein Prostate postoperative change Dictated by: Usama Arambula M.D. on 12/08/2018 at 16:15 Approved by: Usama Arambula M.D. on 12/08/2018 at 16:19 [facility] Narrative Medical decision making narrative: This is a 68 year old male who has history of enlarged prostate, urinary retention, urolift procedure at [facility] in the past presents to ED with generalize malaise, weight loss of 5 lb in a week, bilateral flank pain. Patient denies urinary symptoms, urinary distension, or constitutional symptoms. Patient reports had labs drawn on 12/03/18 which was ordered by PCP and noticed decreased GFR with elevated high creatinine as 17.6 and 3.5 with elevated BUN of 42. Today's kidney function was very mildly improved but still significantly elevated. Today's Cr is 3.4, GFR 18.2 and BUN of 49. CT KUB obtained and it showed severe bilateral hydronephrosis with grossly dilated bladder of 18 cm craniocaudally with bilateral mild perinephric fat stranding. UA shows leukocytes esterase 500 with negative nitrites. Micro UA shows few urine bacteria and white blood cell of 10 to 30 and it is being cultured at this time. When patient initially arrived to ED, Bladder scanner was done post urination and showed <300 ml of urine. This probably likely due to the patient's bladder is significant knee enlarged did not capture the accurate volume. Mckeon catheter was inserted and drained about [address] Medel at [facility] contacted and consulted for patient's care. IV antibiotic medication and Mckeon catheter placement was suggested for patient's current treatment. Patient received 1 L of normal saline and repeat kidney function was drawn and waiting for the result. The patient's case was discussed with the hospitalist GIANCARLO Barfield at 1850 and she kindly accepted the patient's care but patient decided to sign out against medical advice stating she has animals at home that he needs to feed and has other obligations at home. The patient is alert and oriented x3 and has capacity to make sound decisions. I discussed benefit of admission and risk of AMA with the patient with RN Mireille's witness at the bedside. Against Medical Advice form was signed by patient. Keflex prescription has been provided to patient. Patient states andre follow up with Dr. Head the latest on Sunday and will contact Dr. Medel tomorrow in the morning. Return precautions were discussed and verbalized understanding. <Svetlana Bhakta, DO - Last Filed: 12/13/18 18:09> Lab Data Labs: Lab Results 12/08/18 12/08/18 12/08/18 Range/Units 14:32 15:56 15:56 WBC 8.0 (4.5-11.0) X10^3/uL RBC 3.57 L (4.5-5.9) X10^6/uL Hgb 12.2 L (13.5-17.5) g/dL Hct 35.3 L (41-53) % MCV 99.0 (80-100) fL MCH 34.3 H (26-34) PG MCHC 34.6 (30-36) % RDW 12.5 (11.6-14.8) % Plt Count 246 (150-400) X10^3/uL Neut % (Auto) 63.4 (50-75) % Lymph % (Auto) 26.4 (25-40) % [place] % (Auto) 7.2 (3-14) % Eos % (Auto) 2.2 (2-4) % Baso % (Auto) 0.8 (0-2) % Neut # (Auto) 5100 (8745-4723) /uL Lymph # (Auto) 2100 (1111-0639) /uL [place] # (Auto) 600 (0-900) /uL Eos # (Auto) 200 (0-450) /uL Baso # (Auto) 100 (0-100) /uL Sodium 145 (137-145) mmol/L Potassium 4.0 (3.4-5.1) mmol/L Chloride 110 H (98-107) mmol/L Carbon Dioxide 23 (22-32) mmol/L BUN 49 H (9-20) mg/dL Creatinine 3.40 H (0.66-1.25) mg/dL Estimated GFR 18.2 L (>60) mL/min BUN/Creatinine Ratio 14.4 (6-22) Glucose 97 (80-110) mg/dL Calcium 10.0 (8.4-10.2) mg/dL Total Bilirubin 0.5 (0.2-1.3) mg/dL AST 19 (17-59) IU/L ALT 17 L (21-72) IU/L Alkaline Phosphatase 79 (38-126) U/L Total Protein 8.9 H (6.3-8.2) g/dL Albumin 5.0 (3.5-5.0) g/dL Globulin 3.9 (1.7-4.1) g/dL Albumin/Globulin Ratio 1.3 (1.0-2.8) Urine RBC None seen (0-5/HPF) Urine WBC 10-30/hpf H (0-5/HPF) Ur Squamous Epith Cells 0-1 /hpf (0-5/HPF) Amorphous Sediment 1+ Urine Bacteria Few (2-10) H (None) Ur Culture Indicated? Specimen cultured 12/08/18 Range/Units 18:53 WBC (4.5-11.0) X10^3/uL RBC (4.5-5.9) X10^6/uL Hgb (13.5-17.5) g/dL Hct (41-53) % MCV (80-100) fL MCH (26-34) PG MCHC (30-36) % RDW (11.6-14.8) % Plt Count (150-400) X10^3/uL Neut % (Auto) (50-75) % Lymph % (Auto) (25-40) % [place] % (Auto) (3-14) % Eos % (Auto) (2-4) % Baso % (Auto) (0-2) % Neut # (Auto) (5780-5940) /uL Lymph # (Auto) (5922-3647) /uL [place] # (Auto) (0-900) /uL Eos # (Auto) (0-450) /uL Baso # (Auto) (0-100) /uL Sodium 142 (137-145) mmol/L Potassium 4.4 (3.4-5.1) mmol/L Chloride 114 H (98-107) mmol/L Carbon Dioxide 21 L (22-32) mmol/L BUN 48 H (9-20) mg/dL Creatinine 3.20 H (0.66-1.25) mg/dL Estimated GFR 19.5 L (>60) mL/min BUN/Creatinine Ratio 15.0 (6-22) Glucose 129 H (80-110) mg/dL Calcium 9.2 (8.4-10.2) mg/dL Total Bilirubin (0.2-1.3) mg/dL AST (17-59) IU/L ALT (21-72) IU/L Alkaline Phosphatase (38-126) U/L Total Protein (6.3-8.2) g/dL Albumin (3.5-5.0) g/dL Globulin (1.7-4.1) g/dL Albumin/Globulin Ratio (1.0-2.8) Urine RBC (0-5/HPF) Urine WBC (0-5/HPF) Ur Squamous Epith Cells (0-5/HPF) Amorphous Sediment Urine Bacteria (None) Ur Culture Indicated? Urine Dip Bedside Urine Glucose Negative Bedside Urine Bilirubin - Negative Bedside Urine Ketone - Negative Urine Specific [place] 1.010 Bedside Urine Occult Blood - Negative Bedside Urine pH 6.0 Bedside Urine Protein - Negative Bedside Urine Urobilinogen - Negative Bedside Urine Nitrite - Negative Bedside Urine Leukocytes +++ 500 Esterase Discharge Plan Departure Patient Disposition: Left Against Medical Advice Clinical Impression: Acute kidney injury, Acute urinary retention Bladder infection, acute Qualifiers: Hematuria presence: without hematuria Qualified Code(s): N30.00 - Acute cystitis without hematuria Discharge Date/Time: 12/08/18 20:10 Instructions: Acute Renal Failure, DI for Acute Cystitis, DI for Urinary Retention in Men Activity Restrictions/Additional Instructions: You have been diagnosed with [acute kidney injury likely from acute urinary retention and bladder infection. CT test shows severe bilateral hydronephrosis with grossly dilated bladder without stones. Appears to be you have bladder infection according to urine test and CT test. Had drained near 2000 mL of urine through Mckeon today. You declined to stay in the hospital and leaving against medical advice]. What to do: *Take your medications as directed. You were given 1 g of Rocephin IV and 1 L of normal saline IV fluid while in ED. Please start Keflex early tomorrow morning and take 4 times a day for next 7 days. [facility] *Follow up with your primary care provider in 1-2 days, call for an appointment. Let them know you were seen in the ED and that we asked you to be seen in follow up. *Return to ED if you have any new, worsening, or concerning symptoms, such as [nausea, vomiting, flank pain, fever, chest pain, breathing difficulty, abdominal pain, urine not draining from Mckeon or any acute concerns]. Prescriptions: No Action docusate sodium 250 mg Capsule 250 mg PO [id number] RF: 0 dutasteride [Avodart] 0.5 mg Capsule 0.5 mg PO DAILY RF: 0 Referrals: Carlos Head MD [Primary Care Provider] - Segun Medel MD [Family Provider] - Stand Alone Forms: Against Medical Advice
[2018-12-08] MEDS: LIDOCAINE 2% (UROJET) 5 ML GEL TOP (17:57)
--- NOTE | 2018-12-08 17:58 | PC.NURSE ---
16 fr coudet placed for urinary retention. > 1000 cc out immediately.
[2018-12-08 18:00] VITALS: BP 150/90; PULSE 64; RESP 16; O2SAT 100
[2018-12-08] MEDS: CEFTRIAXONE 1 GM/50 ML FROZ.PIGGY IV (18:58)
[2018-12-08 19:16] LABS: Blood Urea Nitrogen 48 mg/dL (9-20); Calcium 9.2 mg/dL (8.4-10.2); Carbon Dioxide 21 mmol/L (22-32); Chloride 114 mmol/L (98-107); Estimated Glomerular Filt Rate 19.5 mL/min (>60); Glucose 129 mg/dL (80-110); HEMOLYSIS < 15 (0-50); Potassium 4.4 mmol/L (3.4-5.1); Sodium 142 mmol/L (137-145)
[2018-12-08 19:57] VITALS: BP 167/97; PULSE 88; RESP 20; TEMP 36.4; O2SAT 96
== END 2018-12-08 20:10 | disposition left against medical advice (07) ==
PROVIDERS: Emergency Provider Nurse Practitioner Family; Family Provider Urology; PCP Family Medicine
DX: N17.9 Acute kidney failure, unspecified (principal); R33.9 Retention of urine, unspecified; N30.00 Acute cystitis without hematuria; Z87.438 Personal history of other diseases of male genital organs; R79.89 Other specified abnormal findings of blood chemistry
CPT/HCPCS: 36415; 51701; 51798; 74176; 80048; 80053; 81003; 81015; 85025; 87086; 96361; 96365; 99284; 99285

== ENCOUNTER 2018-12-09 16:01 | Emergency (ER) | payer MEDICARE, SELFPAY ==
[2018-12-09 16:05] VITALS: BP 203/100; PULSE 109; RESP 18; TEMP 36.7; O2SAT 98
[2018-12-09] MEDS: LIDOCAINE 2% (UROJET) 5 ML GEL TOP (16:26)
[2018-12-09 16:33] LABS: Add Manual Diff / Slide Review NO; Basophils Absolute Auto 100 /uL (0-100); Basophils Percent Auto 0.9 % (0-2); Eosinophils Absolute Auto 100 /uL (0-450); Eosinophils Percent Auto 0.8 % (2-4); Hematocrit 36.7 % (41-53); Hemoglobin 12.7 g/dL (13.5-17.5); Lymphocytes Absolute Auto 2200 /uL (1100-4500); Lymphocytes Percent Auto 19.9 % (25-40); Mean Corpuscular HGB Conc 34.7 % (30-36); Mean Corpuscular Hemoglobin 33.9 PG (26-34); Mean Corpuscular Volume 97.8 fL (80-100); Monocytes Absolute Auto 1000 /uL (0-900); Monocytes Percent Auto 9.1 % (3-14); Neutrophils Absolute Auto 7700 /uL (1500-7000); Neutrophils Percent Auto 69.3 % (50-75); Platelet Count 268 X10^3/uL (150-400); Red Blood Cell Count 3.75 X10^6/uL (4.5-5.9); Red Cell Distribution Width 12.7 % (11.6-14.8); White Blood Cell Count 11.1 X10^3/uL (4.5-11.0)
[2018-12-09 16:43] LABS: BUN Creatinine Ratio 13.9 (6-22); Blood Urea Nitrogen 43 mg/dL (9-20); Calcium 9.2 mg/dL (8.4-10.2); Carbon Dioxide 20 mmol/L (22-32); Chloride 109 mmol/L (98-107); Estimated Glomerular Filt Rate 20.3 mL/min (>60); Glucose 109 mg/dL (80-110); HEMOLYSIS < 15 (0-50); Potassium 4.1 mmol/L (3.4-5.1); Sodium 142 mmol/L (137-145)
[2018-12-09] MEDS: SODIUM CHLORIDE 0.9% 1,000 ML 1000 ML IV (16:51)
[2018-12-09 16:57] VITALS: BP 179/90; PULSE 99; RESP 18; O2SAT 98
--- NOTE | 2018-12-09 16:57 | PC.NURSE ---
# 16 mckeon replaced w/ # [address] mckeon. Pt tolerated well. Irrigated w/ 400 cc sterile saline until clear. Noted small clots which resolved after irrigation. Now receiving IV fluids.
--- NOTE | 2018-12-09 17:07 | ED_ITS ---
HPI - Male Genitourinary <LONA Siddiqi - Last Filed: 12/09/18 23:10> General Chief complaint: Urogenital-Male Stated complaint: BLOOD IN URINE Time Seen by Provider: 12/09/18 16:05 Source: patient Mode of arrival: Ambulatory Limitations: no limitations History of Present Illness HPI Narrative: This is a 68-year-old gentleman, smoker, who presents to ED after he signed Against Medical Advice last night with acute kidney injury with significantly decreased kidney function and urinary retention. Patient noticed hematuria in his Solis bag late last night after he went home. Patient reports bilateral flank discomfort has improved but has been draining who hematuria, stafford Cool-aid color with some clots which was still draining and had emptied about 1000 ml of urine since late last night. Patient denies fever, chills, nausea or vomiting. Patient reports continued to hydrating mostly with coffee, ice tea, Coke with minimal water and juices. Patient attempted to follow up with his previous urologist today at [facility] in [facility] but he was not able to seen by them due to unpaid medical bills. Patient states a new referral to [facility] has been sent by his primary care physician but the follow up appointment is not until December 26. Patient was evaluated by his primary care physician, Dr. Manuel, today and was advised to re-evaluated for his kidney function test, urinary retention and to discontinue the Solis catheter. Related Data Home Medications Medication Instructions Recorded Confirmed No Known Home Medications 12/09/18 12/09/18 Allergies Allergy/AdvReac Type Severity Reaction Status Date / Time No Known Drug Allergies Allergy Verified 12/09/18 16:20 Review of Systems <LONA Siddiqi - Last Filed: 12/09/18 23:10> Review of Systems Narrative: General: Denies fever, chills, fatigue, malaise, sweats. HEENT: Denies sinus pain, ear pain, sore throat, difficulty swallowing, dizziness. Respiratory: Denies dyspnea, cough, wheezing, hemoptysis, sputum. Cardiovascular: Denies chest pain, palpitations, orthopnea, edema. Gastrointestinal: Denies nausea, vomiting, abdominal pain, diarrhea, constipation, melena. : See HPI Musculoskeletal: Denies weakness, joint pain or bony pain. Skin: Denies rash, skin lesions, or other. Neurologic: Denies weakness, headache, numbness, change in speech, confusion, seizures, incoordination. Psychiatric: No concerning psychosocial issues. 12-point review of systems is negative except for those stated above. Patient History <LONA Siddiqi - Last Filed: 12/09/18 23:10> Medical History BPH (benign prostatic hyperplasia) (Chronic) Enlarged prostate (Chronic ~12/2016) Foot pain (Resolved 2015) Hydronephrosis (Chronic) Onychomycosis (Chronic 10/2015) Recurrent UTI (Chronic) Renal failure (Acute) Renal insufficiency (Chronic 01/01/17) Shoulder pain (Chronic ~2005) Surgical History No history of previous surgery (Chronic) S/P urological surgery (Chronic) Family History Father No problems noted. Mother No problems noted. Social History marital status: unmarried,single household members: children lives independently: Yes Smoking Status: Current every day smoker alcohol intake: never substance use type: does not use tobacco type: cigarettes alcohol intake frequency: 0-2 drinks per day Substance Use Type: marijuana Exam <LONA Siddiqi - Last Filed: 12/09/18 23:10> Narrative Exam Narrative: General appearance: well developed, well nourished, in no acute distress appears to be anxious. Head: normocephalic, atraumatic, no scalp lesions, non-tender. Eye: pupil equal, round. EOMI. Nose: nares patent. Oral: mucosa moist. Neck/Thyroid: neck supple, full range of motion, no visible masses. Skin: no suspicious rashes, lesions over visible areas. Warm and dry. Heart: no clubbing, no cyanosis, no edema. Lungs: Breathing even and unlabored. No stridor. No accessory muscles used. Chest: normal shape and expansion. Abdomen: non-obese, non-distended, soft to palpate. Bladder scanner shows 21-38 ml urine. Neurologic: alert and oriented. Cognitive exam, HOME CARE MUSIC THERAPIST and PNS grossly intact on informal exam. Psych: good eye contact, normal affect. Initial Vital Signs Initial Vital Signs: Vital Signs Temperature 98.1 F 12/09/18 16:05 Pulse Rate 109 H 12/09/18 16:05 Respiratory Rate 18 12/09/18 16:05 Blood Pressure 203/100 H 12/09/18 16:05 Pulse Oximetry 98 12/09/18 16:05 <Parish Garcia DO - Last Filed: 12/10/18 07:06> Initial Vital Signs Initial Vital Signs: Vital Signs Temperature 98.1 F 12/09/18 16:05 Pulse Rate 109 H 12/09/18 16:05 Respiratory Rate 18 12/09/18 16:05 Blood Pressure 203/100 H 12/09/18 16:05 Pulse Oximetry 98 12/09/18 16:05 Scores <LONA Siddiqi - Last Filed: 12/09/18 23:10> GCS [place] coma scale eye opening: Spontaneous [place] coma scale verbal response: Orientated [place]av[place] coma scale motor response: Obey commands [place] coma scale total score: 15 Course <LONA Siddiqi - Last Filed: 12/09/18 23:10> Orders Ordered: Discontinued Medications Sodium Chloride (Normal Saline 0.9%) 1,000 mls @ 1,000 mls/hr IV BOLUS ONE Stop: 12/09/18 17:47 Last Infusion: 12/09/18 17:49 Dose: 0 mls/hr Documented by: Admin: 12/09/18 16:51 Dose: 1,000 mls/hr Documented by: VIRGIL Lidocaine HCl (Urojet) 5 ml TOP NOW ONE Stop: 12/09/18 16:24 Last Admin: 12/09/18 16:26 Dose: 5 ml Documented by: VIRGIL Reevaluation(s) Reevaluation #1: continue with hematuria but in light color. states will not stay in the hospital as an admission Time: 17:57 Vital Signs Vital signs: Vital Signs - 8 hr 12/09/18 16:05 12/09/18 16:57 Temperature 98.1 F Pulse Rate 109 H 99 H Respiratory Rate 18 18 Blood Pressure 203/100 H Blood Pressure [Right Arm] 179/90 H Pulse Oximetry 98 98 <Parish Garcia DO - Last Filed: 12/10/18 07:06> Orders Ordered: Discontinued Medications Sodium Chloride (Normal Saline 0.9%) 1,000 mls @ 1,000 mls/hr IV BOLUS ONE Stop: 12/09/18 17:47 Last Infusion: 12/09/18 17:49 Dose: 0 mls/hr Documented by: Admin: 12/09/18 16:51 Dose: 1,000 mls/hr Documented by: VIRGIL Lidocaine HCl (Urojet) 5 ml TOP NOW ONE Stop: 12/09/18 16:24 Last Admin: 12/09/18 16:26 Dose: 5 ml Documented by: VIRGIL Vital Signs Vital signs: Vital Signs - 8 hr 12/09/18 16:05 12/09/18 16:57 Temperature 98.1 F Pulse Rate 109 H 99 H Respiratory Rate 18 18 Blood Pressure 203/100 H Blood Pressure [Right Arm] 179/90 H Pulse Oximetry 98 98 MDM - Male Genitourinary <LONA Siddiqi - Last Filed: 12/09/18 23:10> Differential Diagnosis Differential diagnosis: Likely acute retention of urine and other (Cystitis, enlarged prostate, acute kidney injury) Medical Records Attestation: I reviewed the patient's medical records. Lab Data Attestation: I reviewed the patient's lab results. Result diagrams: 12/09/18 16:17 12/09/18 16:17 Labs: Lab Results 12/09/18 12/09/18 Range/Units 16:17 16:17 WBC 11.1 H (4.5-11.0) X10^3/uL RBC 3.75 L (4.5-5.9) X10^6/uL Hgb 12.7 L (13.5-17.5) g/dL Hct 36.7 L (41-53) % MCV 97.8 (80-100) fL MCH 33.9 (26-34) PG MCHC 34.7 (30-36) % RDW 12.7 (11.6-14.8) % Plt Count 268 (150-400) X10^3/uL Neut % (Auto) 69.3 (50-75) % Lymph % (Auto) 19.9 L (25-40) % Carbon % (Auto) 9.1 (3-14) % Eos % (Auto) 0.8 L (2-4) % Baso % (Auto) 0.9 (0-2) % Neut # (Auto) 7700 H (1533-5742) /uL Lymph # (Auto) 2200 (9216-4546) /uL Carbon # (Auto) 1000 H (0-900) /uL Eos # (Auto) 100 (0-450) /uL Baso # (Auto) 100 (0-100) /uL Sodium 142 (137-145) mmol/L Potassium 4.1 (3.4-5.1) mmol/L Chloride 109 H (98-107) mmol/L Carbon Dioxide 20 L (22-32) mmol/L BUN 43 H (9-20) mg/dL Creatinine 3.10 H (0.66-1.25) mg/dL Estimated GFR 20.3 L (>60) mL/min BUN/Creatinine Ratio 13.9 (6-22) Glucose 109 (80-110) mg/dL Calcium 9.2 (8.4-10.2) mg/dL MDM Narrative Medical decision making narrative: This 68-year-old gentleman who return to ED for Solis catheter patency evaluation for hematuria, urinary retention, kidney function tests after who signed Against Medical Advice form last night for admission to hospital for IV hydration, antibiotic medication and trending for his kidney function due to significant hydronephrosis and acute urinary retention with acute kidney injury. Patient was not able to be evaluated by urologist as he planned but was seen by his primary care physician today. Patient states as having hematuria since he was discharged to home after drained about 2 L of urine via Solis bag yesterday in ED. There was no indication of clotted Solis catheter. 16 [place] Solis catheter was replaced by [address] Solis catheter and irrigated with 400 mL of fluid until clear fluid returned by nursing. Bladder scan showed from 21-38 mL of urine with indwelling Solis catheter. Patient's urine culture came back as no growth. Today's WBC was increased as 11.1 from 8.0 last night. H&H was mildly improved with normal platelet counts. BUN had improved to 43 from 49. Creatinine was 3.1 from 3.4 with GFR of 20.3 from 18.2. Patient was hydrated with normal saline 1 L and reinforced limit caffeine intake and have oral hydration adequately with water and also to decrease bladder irritation. Patient again expressed ready to leave ER against medical advice and states will follow up with his primary care physician and follow up with delivery department supervisor and urologist to find out the cause for hematuria and possible cystoscope if this does not stop. Patient informed not to start antibiotic medication since urine culture was negative for growth. Patient verbalized understanding and states will return to ED with worsening symptoms. <Parish Garcia, DO - Last Filed: 12/10/18 07:06> Lab Data Labs: Lab Results 12/09/18 12/09/18 Range/Units 16:17 16:17 WBC 11.1 H (4.5-11.0) X10^3/uL RBC 3.75 L (4.5-5.9) X10^6/uL Hgb 12.7 L (13.5-17.5) g/dL Hct 36.7 L (41-53) % MCV 97.8 (80-100) fL MCH 33.9 (26-34) PG MCHC 34.7 (30-36) % RDW 12.7 (11.6-14.8) % Plt Count 268 (150-400) X10^3/uL Neut % (Auto) 69.3 (50-75) % Lymph % (Auto) 19.9 L (25-40) % Carbon % (Auto) 9.1 (3-14) % Eos % (Auto) 0.8 L (2-4) % Baso % (Auto) 0.9 (0-2) % Neut # (Auto) 7700 H (8387-0094) /uL Lymph # (Auto) 2200 (8999-6533) /uL Carbon # (Auto) 1000 H (0-900) /uL Eos # (Auto) 100 (0-450) /uL Baso # (Auto) 100 (0-100) /uL Sodium 142 (137-145) mmol/L Potassium 4.1 (3.4-5.1) mmol/L Chloride 109 H (98-107) mmol/L Carbon Dioxide 20 L (22-32) mmol/L BUN 43 H (9-20) mg/dL Creatinine 3.10 H (0.66-1.25) mg/dL Estimated GFR 20.3 L (>60) mL/min BUN/Creatinine Ratio 13.9 (6-22) Glucose 109 (80-110) mg/dL Calcium 9.2 (8.4-10.2) mg/dL Discharge Plan Departure Patient Disposition: Left Against Medical Advice Clinical Impression: Acute kidney injury, Acute urinary retention Hematuria Qualifiers: Hematuria type: unspecified type Qualified Code(s): R31.9 - Hematuria, unspecified Discharge Date/Time: 12/09/18 18:25 Instructions: DI for Hematuria, DI for Urinary Retention in Men, DI for Acute Kidney Injury Activity Restrictions/Additional Instructions: You have been diagnosed with [hematuria, acute kidney injury and urinary retention. Today's kidney function test appears to be improved from yesterday. Please continue to hydrate well with water and limit her caffeine intake. Please monitor for you're urine output Solis bag and keep your Solis bag low to aide drainage. After we irrigated her Solis bag, hematuria appears to be youth services librarian. You do need on evaluation by a urologist and delivery department supervisor follow-up. Negative for growth. You do not need an antibiotic medications at this time.]. What to do: *Take your medications as directed. *Follow up with your primary care provider in 2-3 days, call for an appointment. Let them know you were seen in the ED and that we asked you to be seen in follow up. *Return to ED if you have any new, worsening, or concerning symptoms, such as fever, abdominal pain, flank pain, chest pain, breathing difficulty, urine not draining into Solis bag prolonged time, or any acute concerns]. Prescriptions: No Action No Known Home Medications RF: 0 Referrals: Carlos Head MD [Primary Care Provider] - Stand Alone Forms: Against Medical Advice <Parish Garcia DO - Last Filed: 12/10/18 07:06> Sign Out Provider Sign Out Attestation: Dr Garcia Co-Sign Statement: I was available for consultation during this patient's emergency department visit. This chart is signed by myself for administrative purposes only. I did not have direct contact with this patient during this visit. They were seen independently by the APC.
--- NOTE | 2018-12-09 18:19 | PC.NURSE ---
continues to drain light pink urine w/ flecks of clot. Encouraged to increase fluid intake (and refrain from only fluid being coffee) and to follow up as planned.
== END 2018-12-09 18:25 | disposition left against medical advice (07) ==
PROVIDERS: Emergency Provider Nurse Practitioner Family; Family Provider Urology; PCP Family Medicine
DX: N17.9 Acute kidney failure, unspecified (principal); R33.9 Retention of urine, unspecified; R31.9 Hematuria, unspecified
CPT/HCPCS: 36415; 51700; 51705; 51798; 80048; 85025; 96360; 99283; 99284

== ENCOUNTER 2018-12-11 10:25 | Emergency (ER) | payer MEDICARE, SELFPAY ==
[2018-12-11 10:38] VITALS: BP 169/92; PULSE 112; RESP 18; TEMP 36.7; O2SAT 96; BMI 21.1
--- NOTE | 2018-12-11 11:19 | ED_ITS ---
HPI - Male Genitourinary <KATIE Conley - Last Filed: 12/11/18 14:39> General Chief complaint: Urogenital-Male Stated complaint: catheter issues retainage again he thinks Time Seen by Provider: 12/11/18 11:00 Source: patient Mode of arrival: Family Vehicle Limitations: no limitations History of Present Illness HPI Narrative: The patient is a 68-year-old male current smoker with history of acute kidney injury a presents to the emergency department for chief complaint of ?I do not.Think my Solis is working he was seen at this facility on 12/08 for an acute kidney injury, left against medical advice after admission of been arranged. He re-presented on the for similar complaints. He states he was seen at [facility] yesterday for this similar complaints. He states his GFR and creatinine have been slowly improving. He would like us to check his lab work today. He states that he is concerned about the amount of hematuria. He states he went to [facility] emergency department yesterday to try to see [facility], but they would not see him in the emergency department. He states that they will not see him as an outpatient due to bills I have gone to collections. He s kevin he has an upcoming appointment with Urology in [place] on December 26. He re-presented today to recheck his labs in because he is concerned his Solis is not working. He denies any fevers nausea vomiting or diarrhea. He complains of general aches and pains. He denies any chest pain or shortness of breath. Upon my interview, the patient is requesting warm blankets, requesting food and drink, requesting that the bed be adjusted etc. The patient then states that he is here because of the clots he noticed in his Solis. Chart review illustrate that the patient has left this facility against medical advice on 12/08 and 12/09 Related Data Home Medications Medication Instructions Recorded Confirmed docusate sodium 250 mg PO [id number] 12/11/18 12/11/18 dutasteride [Avodart] 0.5 mg PO DAILY 12/11/18 12/11/18 Allergies Allergy/AdvReac Type Severity Reaction Status Date / Time No Known Drug Allergies Allergy Verified 12/09/18 16:20 Review of Systems <KATIE Conley - Last Filed: 12/11/18 14:39> Review of Systems Narrative: GENERAL: Denies chills, fatigue, malaise, fever, sweats. HEENT: Denies sinus pain, ear pain, sore throat, difficulty swallowing, dizziness. RESPIRATORY: Denies dyspnea, cough, wheezing, hemoptysis, sputum. CARDIOVASCULAR: Denies chest pain, palpitations, orthopnea, edema, GASTROINTESTINAL: Denies nausea, vomiting, abdominal pain, diarrhea, constipation, melena. : See HPI MUSCULOSKELETAL: denies weakness, joint pain, or bony pain SKIN: Denies rash, skin lesions, or other NEUROLOGIC: Denies weakness, headache, numbness, change in speech, confusion, seizures, incoordination. PSYCHIATRIC: No concerning psychosocial issues. 12 point review of systems is negative except for those stated above Patient History <[facility] - Last Filed: 12/11/18 14:39> Social History marital status: unmarried,single household members: children lives independently: Yes Smoking Status: Current every day smoker alcohol intake: never substance use type: does not use tobacco type: cigarettes alcohol intake frequency: 0-2 drinks per day Substance Use Type: marijuana Exam <OWEN [facility] - Last Filed: 12/11/18 14:39> Narrative Exam Narrative: GENERAL: This is a well-nourished, well-developed patient, in no acute distress HEAD: Atraumatic. Normocephalic. No temporal or scalp tenderness. EYES: Pupils equal round and reactive. Extraocular motions intact. No scleral icterus. No injection or drainage. ENT: Nose without bleeding, purulent drainage or septal hematoma. Throat without erythema, tonsillar hypertrophy or exudate. Uvula midline. Airway patent. NECK: Trachea midline. No JVD or lymphadenopathy. Supple, nontender, no meningeal signs. CARDIOVASCULAR: Regular rate and rhythm without murmurs, gallops, or rubs. RESPIRATORY: Clear to auscultation. Breath sounds equal bilaterally. No wheezes, rales, or rhonchi. GASTROINTESTINAL: Abdomen soft, non-tender, nondistended. No hepato- splenomegaly, or palpable masses. No guarding. Solis catheter in place, draining slightly bloody urine. EXTREMITIES: No clubbing, cyanosis, or edema. No joint tenderness, effusion, or edema noted. BACK: Nontender without deformity or crepitance. No flank tenderness. No CVA tenderness bilaterally. NEURO: AOx3. SKIN: No rash or erythema. Initial Vital Signs Initial Vital Signs: Vital Signs Temperature 98.0 F 12/11/18 10:38 Pulse Rate 112 H 12/11/18 10:38 Respiratory Rate 18 12/11/18 10:38 Blood Pressure 169/92 H 12/11/18 10:38 Pulse Oximetry 96 12/11/18 10:38 <Bhakti Pate MD - Last Filed: 12/11/18 15:06> Initial Vital Signs Initial Vital Signs: Vital Signs Temperature 98.0 F 12/11/18 10:38 Pulse Rate 112 H 12/11/18 10:38 Respiratory Rate 18 12/11/18 10:38 Blood Pressure 169/92 H 12/11/18 10:38 Pulse Oximetry 96 12/11/18 10:38 Course <KATIE Conley - Last Filed: 12/11/18 14:39> Orders Ordered: ED Orders 12/11/18 11:36 Complete Blood Count AUTO DIFF Stat Comprehensive Metabolic Panel Stat Vital Signs Vital signs: Vital Signs - 8 hr 12/11/18 10:38 12/11/18 12:00 12/11/18 13:39 Temperature 98.0 F Pulse Rate 112 H 82 111 H Respiratory Rate 18 14 16 Blood Pressure 169/92 H 148/85 H Blood Pressure [Left Arm] 112/74 Pulse Oximetry 96 99 98 <Bhakti Pate MD - Last Filed: 12/11/18 15:06> Orders Ordered: ED Orders 12/11/18 11:36 Complete Blood Count AUTO DIFF Stat Comprehensive Metabolic Panel Stat Vital Signs Vital signs: Vital Signs - 8 hr 12/11/18 10:38 12/11/18 12:00 12/11/18 13:39 Temperature 98.0 F Pulse Rate 112 H 82 111 H Respiratory Rate 18 14 16 Blood Pressure 169/92 H 148/85 H Blood Pressure [Left Arm] 112/74 Pulse Oximetry 96 99 98 MDM - Male Genitourinary <KATIE Conley - Last Filed: 12/11/18 14:39> Lab Data Result diagrams: 12/11/18 11:36 12/11/18 11:36 Labs: Lab Results 12/11/18 12/11/18 Range/Units 11:36 11:36 WBC 8.7 (4.5-11.0) X10^3/uL RBC 3.83 L (4.5-5.9) X10^6/uL Hgb 13.0 L (13.5-17.5) g/dL Hct 37.1 L (41-53) % MCV 96.9 (80-100) fL MCH 34.0 (26-34) PG MCHC 35.1 (30-36) % RDW 12.6 (11.6-14.8) % Plt Count 237 (150-400) X10^3/uL Neut % (Auto) 79.9 H (50-75) % Lymph % (Auto) 10.2 L (25-40) % [place] % (Auto) 7.1 (3-14) % Eos % (Auto) 2.0 (2-4) % Baso % (Auto) 0.8 (0-2) % Neut # (Auto) 7000 (7978-6034) /uL Lymph # (Auto) 900 L (5322-6980) /uL [place] # (Auto) 600 (0-900) /uL Eos # (Auto) 200 (0-450) /uL Baso # (Auto) 100 (0-100) /uL Sodium 141 (137-145) mmol/L Potassium 3.8 (3.4-5.1) mmol/L Chloride 107 (98-107) mmol/L Carbon Dioxide 23 (22-32) mmol/L BUN 40 H (9-20) mg/dL Creatinine 3.10 H (0.66-1.25) mg/dL Estimated GFR 20.3 L (>60) mL/min BUN/Creatinine Ratio 12.9 (6-22) Glucose 125 H (80-110) mg/dL Calcium 9.7 (8.4-10.2) mg/dL Total Bilirubin 0.6 (0.2-1.3) mg/dL AST 20 (17-59) IU/L ALT 13 L (21-72) IU/L Alkaline Phosphatase 79 (38-126) U/L Total Protein 7.9 (6.3-8.2) g/dL Albumin 4.5 (3.5-5.0) g/dL Globulin 3.4 (1.7-4.1) g/dL Albumin/Globulin Ratio 1.3 (1.0-2.8) MDM Narrative Medical decision making narrative: The patient's urinalysis on 12/08 was sent to culture. Culture reflects no growth. Records were obtained from [facility] and I reviewed his records from this facility, which illustrate that he left against medical advice on 12/08 and 1028. The patient's Solis catheter was flushed, and appears to be working very well. His bladder scan was 20-30 cc. I did obtain a CBC CMP, went over the results with him. He states that he is okay with these results and request to leave. I am okay with this given that the patient's lab work is grossly unchanged from 2 days ago, but overall improved, discussed at length pushing fluids. I discussed his lab work with Dr. Pate, who is in accordance with plan of care and states the patient needs careful follow-up. I did discuss with him the importance of following up with primary care provider in the next few days for further re- evaluation, possible repeat lab work. I did discuss that it might serve him well to follow up with his wood boring machine operator, and he states he has one locally. The patient has been afebrile throughout his stay in the emergency department. He states understanding return precautions as well as follow-up care. I discussed the importance of following up with his PCP, stress this week and have repeat outpatient lab work. Patient has no questions or concerns upon discharge and states understanding return precautions as well as follow-up care. <Bhakti Pate MD - Last Filed: 12/11/18 15:06> Lab Data Labs: Lab Results 12/11/18 12/11/18 Range/Units 11:36 11:36 WBC 8.7 (4.5-11.0) X10^3/uL RBC 3.83 L (4.5-5.9) X10^6/uL Hgb 13.0 L (13.5-17.5) g/dL Hct 37.1 L (41-53) % MCV 96.9 (80-100) fL MCH 34.0 (26-34) PG MCHC 35.1 (30-36) % RDW 12.6 (11.6-14.8) % Plt Count 237 (150-400) X10^3/uL Neut % (Auto) 79.9 H (50-75) % Lymph % (Auto) 10.2 L (25-40) % [place] % (Auto) 7.1 (3-14) % Eos % (Auto) 2.0 (2-4) % Baso % (Auto) 0.8 (0-2) % Neut # (Auto) 7000 (4595-7255) /uL Lymph # (Auto) 900 L (1363-5740) /uL [place] # (Auto) 600 (0-900) /uL Eos # (Auto) 200 (0-450) /uL Baso # (Auto) 100 (0-100) /uL Sodium 141 (137-145) mmol/L Potassium 3.8 (3.4-5.1) mmol/L Chloride 107 (98-107) mmol/L Carbon Dioxide 23 (22-32) mmol/L BUN 40 H (9-20) mg/dL Creatinine 3.10 H (0.66-1.25) mg/dL Estimated GFR 20.3 L (>60) mL/min BUN/Creatinine Ratio 12.9 (6-22) Glucose 125 H (80-110) mg/dL Calcium 9.7 (8.4-10.2) mg/dL Total Bilirubin 0.6 (0.2-1.3) mg/dL AST 20 (17-59) IU/L ALT 13 L (21-72) IU/L Alkaline Phosphatase 79 (38-126) U/L Total Protein 7.9 (6.3-8.2) g/dL Albumin 4.5 (3.5-5.0) g/dL Globulin 3.4 (1.7-4.1) g/dL Albumin/Globulin Ratio 1.3 (1.0-2.8) Discharge Plan Departure Patient Disposition: Home Clinical Impression: Acute kidney injury Complication of Solis catheter Qualifiers: Encounter type: initial encounter Qualified Code(s): T83.9XXA - Unspecified complication of genitourinary prosthetic device, implant and graft, initial encounter Discharge Date/Time: 12/11/18 13:35 Instructions: How to Care for Your Solis Catheter -- Male, DI for Acute Kidney Injury Activity Restrictions/Additional Instructions: As discussed your kidney labs are consistent with your visit here 2 days ago. There is some lab to lab variation so please keep this in mind when comparing labs done at different places. As I discussed, I would like you to follow up with primary care provider as soon as possible. I also suggest that you follow-up with your urologist and wood boring machine operator. Please push clear, non caffeinated fluids. Please come back to emergency department for any acute concerns such as chest pain, shortness of breath, concern of heart attack or stroke Prescriptions: No Action docusate sodium 250 mg Capsule 250 mg PO [id number] RF: 0 dutasteride [Avodart] 0.5 mg Capsule 0.5 mg PO DAILY RF: 0 Referrals: Carlos Head MD [Primary Care Provider] -
[2018-12-11 11:50] LABS: Add Manual Diff / Slide Review NO; Basophils Absolute Auto 100 /uL (0-100); Basophils Percent Auto 0.8 % (0-2); Eosinophils Absolute Auto 200 /uL (0-450); Hematocrit 37.1 % (41-53); Lymphocytes Absolute Auto 900 /uL (1100-4500); Lymphocytes Percent Auto 10.2 % (25-40); Mean Corpuscular HGB Conc 35.1 % (30-36); Mean Corpuscular Volume 96.9 fL (80-100); Monocytes Absolute Auto 600 /uL (0-900); Monocytes Percent Auto 7.1 % (3-14); Neutrophils Absolute Auto 7000 /uL (1500-7000); Neutrophils Percent Auto 79.9 % (50-75); Platelet Count 237 X10^3/uL (150-400); Red Blood Cell Count 3.83 X10^6/uL (4.5-5.9); Red Cell Distribution Width 12.6 % (11.6-14.8); White Blood Cell Count 8.7 X10^3/uL (4.5-11.0)
[2018-12-11 12:00] VITALS: BP 112/74; PULSE 82; RESP 14; O2SAT 99
[2018-12-11 12:03] LABS: Alanine Aminotransferase 13 IU/L (21-72); Albumin 4.5 g/dL (3.5-5.0); Albumin Globulin Ratio 1.3 (1.0-2.8); Alkaline Phosphatase 79 U/L (38-126); Aspartate Aminotransferase 20 IU/L (17-59); BUN Creatinine Ratio 12.9 (6-22); Bilirubin Total 0.6 mg/dL (0.2-1.3); Blood Urea Nitrogen 40 mg/dL (9-20); Calcium 9.7 mg/dL (8.4-10.2); Carbon Dioxide 23 mmol/L (22-32); Chloride 107 mmol/L (98-107); Estimated Glomerular Filt Rate 20.3 mL/min (>60); Globulin 3.4 g/dL (1.7-4.1); Glucose 125 mg/dL (80-110); HEMOLYSIS < 15 (0-50); Potassium 3.8 mmol/L (3.4-5.1); Sodium 141 mmol/L (137-145); Total Protein 7.9 g/dL (6.3-8.2)
--- NOTE | 2018-12-11 12:10 | PC.NURSE ---
3 way catheter present upon arrival to ER. flushed catheter with 200 cc sterile water. pulled back all of the sterile water. a very tiny blood clot came out with the first flush. flushed catheter until clear. no hematuria. LONA Conley aware
[2018-12-11 13:39] VITALS: BP 148/85; PULSE 111; RESP 16; O2SAT 98
== END 2018-12-11 13:35 | disposition home or self-care (01) ==
PROVIDERS: Emergency Provider Nurse Practitioner Family; PCP Family Medicine
DX: N17.9 Acute kidney failure, unspecified (principal); T83.091A Other mechanical complication of indwelling urethral catheter, initial encounter
CPT/HCPCS: 36415; 51798; 80053; 85025; 99283

== ENCOUNTER → 2018-12-19 16:10 | Outpatient (CLI) | payer MEDICARE, SELFPAY ==
[2018-12-19 17:19] LABS: Blood Urea Nitrogen 30 mg/dL (9-20); Calcium 9.6 mg/dL (8.4-10.2); Carbon Dioxide 24 mmol/L (22-32); Chloride 109 mmol/L (98-107); Estimated Glomerular Filt Rate 28.6 mL/min (>60); Glucose 107 mg/dL (80-110); HEMOLYSIS < 15 (0-50); Phosphorous 3.2 mg/dL (2.3-3.7); Potassium 4.1 mmol/L (3.4-5.1); Sodium 141 mmol/L (137-145)
[2018-12-19 17:36] LABS: Vitamin D 25 Hydroxy (D3) 30.5 ng/mL (30.0-100.0)
[2018-12-21 16:35] LABS: Parathyroid Hormone Int 139 pg/mL (14-64)
[2018-12-21 16:42] LABS: PSA Free % 29 % (calc) (> 25); PSA, Total 5.6 ng/mL (< 4.1)
== END ==
PROVIDERS: PCP Family Medicine; Visit Provider Internal Medicine
DX: N18.4 Chronic kidney disease, stage 4 (severe) (principal); N40.1 Benign prostatic hyperplasia with lower urinary tract symptoms; R33.8 Other retention of urine
CPT/HCPCS: 36415; 80048; 82306; 83970; 84100; 84153; 84154

== ENCOUNTER 2018-12-31 15:26 | Emergency (ER) | payer MEDICARE, SELFPAY ==
[2018-12-31 15:33] VITALS: BP 168/94; PULSE 88; RESP 14; TEMP 36.6; O2SAT 97
--- NOTE | 2018-12-31 15:43 | ED_ITS ---
HPI - Male Genitourinary <LONA Varela - Last Filed: 12/31/18 21:01> General Chief complaint: Urogenital-Male Stated complaint: states kidneys are going nuts, eyes swollen Time Seen by Provider: 12/31/18 15:33 Source: patient Mode of arrival: Ambulatory History of Present Illness HPI Narrative: 68-year-old male who was recently diagnosed with urinary tension presents emergency department for concerns about a medication that his surveyor geophysical prospecting gave him. When he saw the surveyor geophysical prospecting he was feeling much better but then he started taking doxazosin about 10 days ago, at that time he began feeling a decrease in appetite, eye swelling, wound started hearing his heart beat in his right ear when he was lying on his pillow. He states when he hears the heart bee in his ear he pops is years by blowing through his nose and the sign of his heartbeat goes away. Patient denies any headaches, vision changes, leg swelling, fevers, chills, rhinorrhea, nasal congestion, ear pain, nausea, vomiting, diarrhea, worsening urinary retention, flank pain, or other concerns. He states he continues to wears catheter as directed and reports a continues to drain urine without signs of blood, discoloration, or foul smell. Patient states he did not talk with his surveyor geophysical prospecting but talked with primary care provider and was instructed to present to the emergency department. Related Data Home Medications Medication Instructions Recorded Confirmed dutasteride [Avodart] 0.5 mg PO DAILY 12/11/18 12/31/18 docusate sodium 100 mg PO BID 12/31/18 12/31/18 doxazosin 4 mg PO QPM 12/31/18 12/31/18 Allergies Allergy/AdvReac Type Severity Reaction Status Date / Time No Known Drug Allergies Allergy Verified 12/31/18 15:37 Review of Systems <LONA Varela - Last Filed: 12/31/18 21:01> Review of Systems Narrative: REVIEW OF SYSTEMS: GENERAL: Denies fever or chills. HENT: No head trauma, hearing loss or sore throat. Reports hearing has heart beat in his ear, see HPI. EYES: No loss of vision, double vision, eye pain, or irritation. CARDIOVASCULAR: No chest pain or syncope. RESPIRATORY: No shortness of breath or cough. GASTROINTESTINAL: No nausea, vomiting, diarrhea, or constipation. GENITOURINARY: No flank pain or dysuria. MUSCULOSKELETAL: No pain, weakness, or deformities. INTEGUMENTARY: No rash, lesions, or pruritus. NEURO: No numbness, tingling, memory loss, or confusion. PSYCH: No behavior or mood changes. Patient History <LONA Varela - Last Filed: 12/31/18 21:01> Medical History BPH (benign prostatic hyperplasia) (Chronic) Enlarged prostate (Chronic ~12/2016) Foot pain (Resolved 2015) Hydronephrosis (Chronic) Onychomycosis (Chronic 10/2015) Recurrent UTI (Chronic) Renal failure (Acute) Renal insufficiency (Chronic 01/01/17) Shoulder pain (Chronic ~2005) Surgical History No history of previous surgery (Chronic) S/P urological surgery (Chronic) Family History Father No problems noted. Mother No problems noted. Social History marital status: unmarried,single household members: children lives independently: Yes Smoking Status: Current every day smoker alcohol intake: never substance use type: does not use tobacco type: cigarettes alcohol intake frequency: 0-2 drinks per day Substance Use Type: marijuana Exam <LONA Varela - Last Filed: 12/31/18 21:01> Initial Vital Signs Initial Vital Signs: Vital Signs Temperature 97.9 F 12/31/18 15:33 Pulse Rate 88 12/31/18 15:33 Respiratory Rate 14 12/31/18 15:33 Blood Pressure 168/94 H 12/31/18 15:33 Pulse Oximetry 97 12/31/18 15:33 PHYSICAL EXAMINATION: GENERAL: Well groomed, alert, and cooperative. Answers questions promptly and appropriately. Vital signs noted. HENT: Normocephalic, atraumatic. Ear canals patent. Clear ear effusion noted to right side of ear, no erythema, no bulging or mucoid appearance. Oral mucosa is pink and moist. EYES: Conjunctiva pink, sclera white, no periorbital swelling. CHEST: Normal to inspection and without deformities. CARDIOVASCULAR: S1 and S2 sounds normal. Regular rate and rhythm, no murmurs, clicks, or bruits. No pedal edema. RESPIRATORY: Normal respiratory rate, trachea midline, airway patent. No stridor, nasal flaring or accessory muscle use. Lungs are clear in all collier without wheeze, rhonchi, or crackles. GASTROINTESTINAL: Bowel sounds normoactive. Abdomen is soft and non-tender. No organomegaly. MUSCULOSKELETAL: Normal gait and coordination. Equal tone and mass bilaterally. EXTREMITIES: CMS intact. Moves all extremities. No pedal edema. SKIN: Warm, dry, soft, appropriate color for ethnicity. No lesions, rashes, or wounds. NEURO: Alert and Oriented X 3. Good coordination. No ataxia, or sensory deficits, or cognitive issues. PSYCH: Appropriate affect and mood. <Carly Roman DO - Last Filed: 01/02/19 07:29> Initial Vital Signs Initial Vital Signs: Vital Signs Temperature 97.9 F 12/31/18 15:33 Pulse Rate 88 12/31/18 15:33 Respiratory Rate 14 12/31/18 15:33 Blood Pressure 168/94 H 12/31/18 15:33 Pulse Oximetry 97 12/31/18 15:33 Course <LONA Varela - Last Filed: 12/31/18 21:01> Orders Ordered: ED Orders 12/31/18 15:42 XR chest 1V Stat EKG-12 Lead Stat 12/31/18 15:52 B Type Natriuretic Peptide Stat Complete Blood Count AUTO DIFF Stat Comprehensive Metabolic Panel Stat Troponin & CK Cardiac Panel Stat Consultations Consultation #1: Patient staffed by Dr. Roman. Vital Signs Vital signs: Vital Signs - 8 hr 12/31/18 15:33 12/31/18 17:08 Temperature 97.9 F Pulse Rate 88 80 Respiratory Rate 14 16 Blood Pressure 168/94 H Blood Pressure [Left Arm] 155/88 H Pulse Oximetry 97 100 <Carly Roman DO - Last Filed: 01/02/19 07:29> Orders Ordered: ED Orders 12/31/18 15:42 XR chest 1V Stat EKG-12 Lead Stat 12/31/18 15:52 B Type Natriuretic Peptide Stat Complete Blood Count AUTO DIFF Stat Comprehensive Metabolic Panel Stat Troponin & CK Cardiac Panel Stat Vital Signs Vital signs: Vital Signs - 8 hr 12/31/18 15:33 12/31/18 17:08 Temperature 97.9 F Pulse Rate 88 80 Respiratory Rate 14 16 Blood Pressure 168/94 H Blood Pressure [Left Arm] 155/88 H Pulse Oximetry 97 100 MDM - Male Genitourinary <LONA Varela - Last Filed: 12/31/18 21:01> Medical Records Attestation: I reviewed the patient's medical records. Lab Data Attestation: I reviewed the patient's lab results. Result diagrams: 12/31/18 15:52 12/31/18 15:52 Labs: Lab Results 12/31/18 12/31/18 Range/Units 15:52 15:52 WBC 7.6 (4.5-11.0) X10^3/uL RBC 3.40 L (4.5-5.9) X10^6/uL Hgb 11.7 L (13.5-17.5) g/dL Hct 33.5 L (41-53) % MCV 98.6 (80-100) fL MCH 34.3 H (26-34) PG MCHC 34.8 (30-36) % RDW 12.5 (11.6-14.8) % Plt Count 238 (150-400) X10^3/uL Neut % (Auto) 65.6 (50-75) % Lymph % (Auto) 21.8 L (25-40) % Trigg % (Auto) 7.8 (3-14) % Eos % (Auto) 3.9 (2-4) % Baso % (Auto) 0.9 (0-2) % Neut # (Auto) 5000 (5039-4009) /uL Lymph # (Auto) 1700 (9047-6517) /uL Trigg # (Auto) 600 (0-900) /uL Eos # (Auto) 300 (0-450) /uL Baso # (Auto) 100 (0-100) /uL Sodium 137 (137-145) mmol/L Potassium 3.9 (3.4-5.1) mmol/L Chloride 105 (98-107) mmol/L Carbon Dioxide 25 (22-32) mmol/L BUN 29 H (9-20) mg/dL Creatinine 2.30 H (0.66-1.25) mg/dL Estimated GFR 28.6 L (>60) mL/min BUN/Creatinine Ratio 12.6 (6-22) Glucose 103 (80-110) mg/dL Calcium 9.4 (8.4-10.2) mg/dL Total Bilirubin 0.5 (0.2-1.3) mg/dL AST 19 (17-59) IU/L ALT 16 (<50) IU/L Alkaline Phosphatase 81 (38-126) U/L Total Creatine Kinase 104 (55-170) U/L CK-MB (CK-2) 1.90 (<2.37) ng/mL CK-MB (CK-2) Rel Index 1.8 (1.5-5.0) % Troponin I < 0.012 (0.01-0.034) ng/mL B-Natriuretic Peptide < 100 (<100) Total Protein 7.5 (6.3-8.2) g/dL Albumin 4.2 (3.5-5.0) g/dL Globulin 3.3 (1.7-4.1) g/dL Albumin/Globulin Ratio 1.3 (1.0-2.8) Imaging Data Chest x-ray: Radiologist's impression: [address] [address] XRay Report Signed Patient: Segun Turcios RMR#: [id number] : 2Acct:[id number] Age/Sex: 68 / MDate of Service: 12/31/18 Loc: ED Accession Number: [id number] Procedure: XR chest 1V Ordering Provider: Bernice Duran PROCEDURE: XR CHEST 1V INDICATIONS: Palpitations TECHNIQUE: One view of the chest was acquired. COMPARISON: [facility], , CHEST 2 VIEW, 11/26/2008, 9:44. FINDINGS: Surgical changes and devices: None. Lungs and pleura: Lungs are clear. No pleural effusions or pneumothorax. Mediastinum: Mediastinal contours appear normal. Heart size is normal. Bones and chest wall: No suspicious bony lesions. Overlying soft tissues appear unremarkable. IMPRESSION: Normal for age. Cardiomegaly or CHF is not seen. Dictated by: Jack Guevara M.D. on 12/31/2018 at 16:12 Approved by: Jack Guevara M.D. on 12/31/2018 at 16:13 ECG Data Interpretation: Normal sinus rhythm, rate 82, MS interval 157, QTC 409. No ST elevation or ST depression. No T-wave abnormality. No ectopy. EKG also viewed by Dr. Roman. [facility] Narrative Medical decision making narrative: This is a 68-year-old male with a history of urinary tension presenting to the emergency department for palpitations in his ear and eye swelling after taking doxazosin. I suspect patient's symptoms are caused by an ear effusion. Less likely cardiac etiology due to non remarkable EKG, negative chest x-ray, normal BNP, and non remarkable labs. Patient's renal function was normal for patient, no concerns of infection due to lack of systemic symptoms and normal white blood cell count. Patient was encouraged to contact his surveyor geophysical prospecting about the medication side effects and have a discussion about changes if needed. Patient was reassured after test results and discussion. Return precautions given for new or worsening symptoms. <Carly Roman, DO - Last Filed: 01/02/19 07:29> Lab Data Labs: Lab Results 12/31/18 12/31/18 Range/Units 15:52 15:52 WBC 7.6 (4.5-11.0) X10^3/uL RBC 3.40 L (4.5-5.9) X10^6/uL Hgb 11.7 L (13.5-17.5) g/dL Hct 33.5 L (41-53) % MCV 98.6 (80-100) fL MCH 34.3 H (26-34) PG MCHC 34.8 (30-36) % RDW 12.5 (11.6-14.8) % Plt Count 238 (150-400) X10^3/uL Neut % (Auto) 65.6 (50-75) % Lymph % (Auto) 21.8 L (25-40) % Trigg % (Auto) 7.8 (3-14) % Eos % (Auto) 3.9 (2-4) % Baso % (Auto) 0.9 (0-2) % Neut # (Auto) 5000 (4610-5217) /uL Lymph # (Auto) 1700 (4486-5788) /uL Trigg # (Auto) 600 (0-900) /uL Eos # (Auto) 300 (0-450) /uL Baso # (Auto) 100 (0-100) /uL Sodium 137 (137-145) mmol/L Potassium 3.9 (3.4-5.1) mmol/L Chloride 105 (98-107) mmol/L Carbon Dioxide 25 (22-32) mmol/L BUN 29 H (9-20) mg/dL Creatinine 2.30 H (0.66-1.25) mg/dL Estimated GFR 28.6 L (>60) mL/min BUN/Creatinine Ratio 12.6 (6-22) Glucose 103 (80-110) mg/dL Calcium 9.4 (8.4-10.2) mg/dL Total Bilirubin 0.5 (0.2-1.3) mg/dL AST 19 (17-59) IU/L ALT 16 (<50) IU/L Alkaline Phosphatase 81 (38-126) U/L Total Creatine Kinase 104 (55-170) U/L CK-MB (CK-2) 1.90 (<2.37) ng/mL CK-MB (CK-2) Rel Index 1.8 (1.5-5.0) % Troponin I < 0.012 (0.01-0.034) ng/mL B-Natriuretic Peptide < 100 (<100) Total Protein 7.5 (6.3-8.2) g/dL Albumin 4.2 (3.5-5.0) g/dL Globulin 3.3 (1.7-4.1) g/dL Albumin/Globulin Ratio 1.3 (1.0-2.8) Discharge Plan Departure Patient Disposition: Home Clinical Impression: Heart palpitations, Acute effusion of right ear Discharge Date/Time: 12/31/18 17:09 Instructions: DI for Arrhythmias Activity Restrictions/Additional Instructions: Thank you for entrusting me with your care today. As discussed, your x-ray, EKG, and lab work were non-remarkable for any concerning symptoms regarding your heart palpitations. Your symptoms may be caused by a clear liquid called an ear effusion in your ear. There is no change to your kidney function, your BUN was 29, creatinine 2.3, and GFR 26.6 today. Please call your surveyor geophysical prospecting in the morning to discuss the side effects of the medication and follow-up. Return emergency department for new or worsening symptoms such as chest pain, shortness of breath, high fevers, uncontrollable vomiting, or other concerns. Prescriptions: No Action dutasteride [Avodart] 0.5 mg Capsule 0.5 mg PO DAILY RF: 0 docusate sodium 100 mg capsule 100 mg PO BID RF: 0 doxazosin 4 mg tablet 4 mg PO QPM RF: 0 Referrals: Carlos Head MD [Primary Care Provider] -
--- NOTE | 2018-12-31 15:43 | PC.NURSE ---
pt describes pressure in eyes and loss of appetite since Sunday. pt states he was put on new medication by nephrology about 10 days ago.
[2018-12-31 15:58] LABS: Add Manual Diff / Slide Review NO; Basophils Absolute Auto 100 /uL (0-100); Basophils Percent Auto 0.9 % (0-2); Eosinophils Absolute Auto 300 /uL (0-450); Eosinophils Percent Auto 3.9 % (2-4); Hematocrit 33.5 % (41-53); Hemoglobin 11.7 g/dL (13.5-17.5); Lymphocytes Absolute Auto 1700 /uL (1100-4500); Lymphocytes Percent Auto 21.8 % (25-40); Mean Corpuscular HGB Conc 34.8 % (30-36); Mean Corpuscular Hemoglobin 34.3 PG (26-34); Mean Corpuscular Volume 98.6 fL (80-100); Monocytes Absolute Auto 600 /uL (0-900); Monocytes Percent Auto 7.8 % (3-14); Neutrophils Absolute Auto 5000 /uL (1500-7000); Neutrophils Percent Auto 65.6 % (50-75); Platelet Count 238 X10^3/uL (150-400); Red Cell Distribution Width 12.5 % (11.6-14.8); White Blood Cell Count 7.6 X10^3/uL (4.5-11.0)
--- NOTE | 2018-12-31 16:02 | PC.NURSE ---
pt arrived with a mckeon catheter in place, states he feels full. 4ml of urine noted with bladder scan.
[2018-12-31 16:12] LABS: Alanine Aminotransferase 16 IU/L (<50); Albumin 4.2 g/dL (3.5-5.0); Albumin Globulin Ratio 1.3 (1.0-2.8); Alkaline Phosphatase 81 U/L (38-126); Aspartate Aminotransferase 19 IU/L (17-59); BUN Creatinine Ratio 12.6 (6-22); Bilirubin Total 0.5 mg/dL (0.2-1.3); Blood Urea Nitrogen 29 mg/dL (9-20); Calcium 9.4 mg/dL (8.4-10.2); Carbon Dioxide 25 mmol/L (22-32); Chloride 105 mmol/L (98-107); Creatine Kinase 104 U/L (55-170); Estimated Glomerular Filt Rate 28.6 mL/min (>60); Globulin 3.3 g/dL (1.7-4.1); Glucose 103 mg/dL (80-110); HEMOLYSIS < 15 (0-50); Potassium 3.9 mmol/L (3.4-5.1); Sodium 137 mmol/L (137-145); Total Protein 7.5 g/dL (6.3-8.2)
[2018-12-31 16:18] LABS: B Type Natriuretic Peptide < 100 (<100)
[2018-12-31 16:24] LABS: Troponin I < 0.012 ng/mL (0.01-0.034)
[2018-12-31 16:27] LABS: CKMB % Relative Index 1.8 % (1.5-5.0)
[2018-12-31 17:08] VITALS: BP 155/88; PULSE 80; RESP 16; O2SAT 100
== END 2018-12-31 17:09 | disposition home or self-care (01) ==
PROVIDERS: Emergency Provider Nurse Practitioner; PCP Family Medicine
DX: R00.2 Palpitations (principal); H65.191 Other acute nonsuppurative otitis media, right ear
CPT/HCPCS: 36415; 51798; 71045; 80053; 82550; 82553; 83880; 84484; 85025; 93005; 99283; 99285

== ENCOUNTER → 2019-01-21 15:52 | Outpatient (CLI) | payer MEDICARE, OTHER, MEDICAID, SELFPAY ==
[2019-01-21 16:40] LABS: BUN Creatinine Ratio 14.1 (6-22); Blood Urea Nitrogen 31 mg/dL (9-20); Calcium 9.8 mg/dL (8.4-10.2); Carbon Dioxide 24 mmol/L (22-32); Chloride 108 mmol/L (98-107); Glucose 86 mg/dL (80-110); HEMOLYSIS < 15 (0-50); Potassium 4.3 mmol/L (3.4-5.1); Sodium 142 mmol/L (137-145)
== END ==
PROVIDERS: Family Provider Urology; PCP Family Medicine; Visit Provider Family Medicine
DX: N18.3 Chronic kidney disease, stage 3 (moderate) (principal)
CPT/HCPCS: 36415; 80048

== ENCOUNTER → 2019-02-25 13:54 | Outpatient (CLI) | payer MEDICARE, OTHER, MEDICAID, SELFPAY ==
[2019-02-25 15:29] LABS: Blood Urea Nitrogen 26 mg/dL (9-20); Calcium 9.8 mg/dL (8.4-10.2); Carbon Dioxide 26 mmol/L (22-32); Chloride 105 mmol/L (98-107); Estimated Glomerular Filt Rate 33.5 mL/min (>60); Glucose 94 mg/dL (80-110); HEMOLYSIS < 15 (0-50); Potassium 4.5 mmol/L (3.4-5.1); Sodium 140 mmol/L (137-145)
== END ==
PROVIDERS: Family Provider Urology; PCP Family Medicine; Visit Provider Urology
DX: R33.9 Retention of urine, unspecified (principal)
CPT/HCPCS: 36415; 80048

== ENCOUNTER → 2019-02-27 11:20 | Outpatient (CLI) | payer MEDICARE, OTHER, MEDICAID, SELFPAY ==
[2019-02-27 11:45] LABS: Bacteria Urine None Seen
[2019-02-27 12:35] LABS: Appearance Urine UA CLEAR; Bilirubin Urine UA NEGATIVE (NEGATIVE); Color Urine UA YELLOW; Glucose Urine UA NEGATIVE (Negative); Ketones Urine UA NEGATIVE (NEGATIVE); Leukocyte Esterase Urine UA NEGATIVE (NEGATIVE); Nitrite Urine UA NEGATIVE (Negative); Occult Blood Urine UA 1+ (Negative); Protein Urine UA NEGATIVE (Negative); Urobilinogen Urine UA 0.2 E.U./dL (0.2)
[2019-02-27 12:45] LABS: Culture Indicated Urine Cult Not Indicated; RBC Urine 1-5/HPF (0-5/HPF); Squamous Epithelial Cell Urine 0-1 /HPF (0-5/HPF); WBC Urine 1-5/HPF (0-5/HPF)
== END ==
PROVIDERS: Family Provider Urology; PCP Family Medicine; Visit Provider Urology
DX: R33.9 Retention of urine, unspecified (principal)
CPT/HCPCS: 81001

== ENCOUNTER → 2019-03-03 14:31 | Outpatient (CLI) | payer MEDICARE, OTHER, MEDICAID, SELFPAY ==
[2019-03-03 17:23] LABS: BUN Creatinine Ratio 12.3 (6-22); Blood Urea Nitrogen 27 mg/dL (9-20); Calcium 9.8 mg/dL (8.4-10.2); Carbon Dioxide 26 mmol/L (22-32); Chloride 106 mmol/L (98-107); Glucose 85 mg/dL (80-110); HEMOLYSIS < 15 (0-50); Potassium 4.9 mmol/L (3.4-5.1); Sodium 141 mmol/L (137-145)
== END ==
PROVIDERS: PCP Family Medicine; Visit Provider Urology
DX: R33.9 Retention of urine, unspecified (principal)
CPT/HCPCS: 36415; 80048

== ENCOUNTER → 2019-03-12 10:38 | Outpatient (CLI) | payer MEDICARE, OTHER, MEDICAID, SELFPAY ==
--- NOTE | 2019-03-12 | DI.US.S_ITS ---
PROCEDURE: US RENAL COMPLETE INDICATIONS: URINARY RETENTION, UNSPECIFIED TECHNIQUE: Real-time scanning was performed of the kidneys and bladder, with image documentation. COMPARISON: [facility], CT, CT KIDNEY URETER BLADDER (KUB), 12/08/2018, 16:50. [facility], US, RENAL COMPLETE, 05/15/2017, 8:55. FINDINGS: Kidneys: Kidneys are normal in size. Right kidney measures 10.6 cm long; left kidney measures 11.3 cm long. Right renal cortical thickness is 1 cm; left renal cortical thickness is 1.4 cm. Renal cortical echotexture is normal. No nephrolithiasis. No suspicious solid mass lesions. Moderate to severe bilateral hydronephrosis can be seen. The right proximal ureter is also dilated. Bladder: Pre-void bladder volume is 771 mL. despite a bladder line, the patient was unable to void. Pre-void images demonstrate no intraluminal masses or stones. On pre-void images, neither of the ureteral jets are noted with color Doppler interrogation. (Of note, ureteral jets may not be detectable in up to 25% of cases due to insufficient differences in specific gravity between ureteral and bladder urine). Miscellaneous: No free pelvic fluid. IMPRESSION: Moderate to severe hydronephrosis is seen. Right-sided hydroureter is also seen. Urinary retention, with the patient unable to void despite a measured bladder volume of 771 cc. Dictated by: Usama Arambula M.D. on 03/12/2019 at 11:29 Approved by: Usama Arambula M.D. on 03/12/2019 at 11:31
== END ==
PROVIDERS: PCP Family Medicine; Visit Provider Urology
DX: R33.9 Retention of urine, unspecified (principal); N13.30 Unspecified hydronephrosis
CPT/HCPCS: 76770

== ENCOUNTER → 2019-03-13 11:13 | Outpatient (CLI) | payer MEDICARE, OTHER, MEDICAID, SELFPAY ==
[2019-03-13 12:40] LABS: BUN Creatinine Ratio 14.1 (6-22); Blood Urea Nitrogen 31 mg/dL (9-20); Calcium 9.9 mg/dL (8.4-10.2); Carbon Dioxide 25 mmol/L (22-32); Chloride 106 mmol/L (98-107); Glucose 102 mg/dL (80-110); HEMOLYSIS < 15 (0-50); Potassium 4.3 mmol/L (3.4-5.1); Sodium 141 mmol/L (137-145)
== END ==
PROVIDERS: PCP Family Medicine; Visit Provider Internal Medicine
DX: N18.3 Chronic kidney disease, stage 3 (moderate) (principal); I10 Essential (primary) hypertension
CPT/HCPCS: 36415; 80048

== ENCOUNTER → 2019-04-07 10:23 | Outpatient (CLI) | payer MEDICARE, OTHER, MEDICAID, SELFPAY ==
[2019-04-07 11:41] LABS: Blood Urea Nitrogen 30 mg/dL (9-20); Calcium 10.1 mg/dL (8.4-10.2); Carbon Dioxide 25 mmol/L (22-32); Chloride 108 mmol/L (98-107); Estimated Glomerular Filt Rate 28.5 mL/min (>60); Glucose 76 mg/dL (80-110); HEMOLYSIS < 15 (0-50); Potassium 4.6 mmol/L (3.4-5.1); Sodium 142 mmol/L (137-145)
== END ==
PROVIDERS: PCP Family Medicine; Referring Provider Urology; Visit Provider Urology
DX: R33.9 Retention of urine, unspecified (principal)
CPT/HCPCS: 36415; 80048

== ENCOUNTER → 2019-04-21 13:44 | Outpatient (CLI) | payer MEDICARE, OTHER, MEDICAID, SELFPAY ==
--- NOTE | 2019-04-21 | DI.US.S_ITS ---
PROCEDURE: US RENAL COMPLETE INDICATIONS: RETENTION OF URINE TECHNIQUE: Real-time scanning was performed of the kidneys and bladder, with image documentation. COMPARISON: [facility], , RENAL COMPLETE, 03/12/2019, 11:08. FINDINGS: Kidneys: Kidneys are normal in size. Right kidney measures 10.5 cm long; left kidney measures 12.2 cm long. Right renal cortical thickness is 6-7 mm ; left renal cortical thickness is 1.5 cm. Renal cortical echotexture is normal. Bilateral moderate-severe hydronephrosis. No nephrolithiasis. No suspicious solid mass lesions. There is bilateral hydroureter Bladder: Pre-void bladder volume is 1125 mL. Post-void residual is 1076 mL. There are subcentimeter multiple areas of mural nodularity, which are nondependent/non-mobile. On pre-void images, neither of the ureteral jets are noted with color Doppler interrogation. (Of note, ureteral jets may not be detectable in up to 25% of cases due to insufficient differences in specific gravity between ureteral and bladder urine). Miscellaneous: No free pelvic fluid. Prostate measures 4.8 x 5.7 cm IMPRESSION: Post void residual measures 1076 mL. This raises the possibility of bladder outlet obstruction Small areas of mural nodularity involving the bladder. Technically, cannot exclude bladder malignancy and these can be further assessed with dedicated cystoscopy as clinically warranted Bilateral moderate to severe hydroureteronephrosis. Right renal cortical atrophy/thinning. Dictated by: Uli Zhao M.D. on 04/21/2019 at 17:46 Approved by: Uli Zhao M.D. on 04/21/2019 at 17:51
[2019-04-21 16:57] LABS: BUN Creatinine Ratio 11.5 (6-22); Blood Urea Nitrogen 26 mg/dL (9-20); Calcium 9.8 mg/dL (8.4-10.2); Carbon Dioxide 27 mmol/L (22-32); Chloride 107 mmol/L (98-107); Estimated Glomerular Filt Rate 29.1 mL/min (>60); Glucose 84 mg/dL (80-110); HEMOLYSIS < 15 (0-50); Potassium 4.9 mmol/L (3.4-5.1); Sodium 140 mmol/L (137-145)
== END ==
PROVIDERS: PCP Family Medicine; Referring Provider Urology; Visit Provider Urology
DX: R33.9 Retention of urine, unspecified (principal); N13.30 Unspecified hydronephrosis
CPT/HCPCS: 36415; 76770; 80048

== ENCOUNTER → 2019-06-06 15:01 | Outpatient (CLI) | payer MEDICARE, OTHER, MEDICAID, SELFPAY ==
[2019-06-06 16:03] LABS: BUN Creatinine Ratio 13.8 (6-22); Blood Urea Nitrogen 34 mg/dL (9-20); Calcium 9.7 mg/dL (8.4-10.2); Carbon Dioxide 24 mmol/L (22-32); Chloride 108 mmol/L (98-107); Estimated Glomerular Filt Rate 26.3 mL/min (>60); Glucose 91 mg/dL (80-110); HEMOLYSIS < 15 (0-50); Sodium 139 mmol/L (137-145)
== END ==
PROVIDERS: PCP Family Medicine; Referring Provider Urology; Visit Provider Urology
DX: R33.9 Retention of urine, unspecified (principal)
CPT/HCPCS: 36415; 80048

== ENCOUNTER → 2019-10-07 16:04 | Outpatient (CLI) | payer MEDICARE, OTHER, MEDICAID, SELFPAY ==
[2019-10-07 17:01] LABS: BUN Creatinine Ratio 12.3 (6-22); Blood Urea Nitrogen 42 mg/dL (9-20); Calcium 9.1 mg/dL (8.4-10.2); Carbon Dioxide 22 mmol/L (22-32); Chloride 110 mmol/L (98-107); Estimated Glomerular Filt Rate 18.1 mL/min (>60); Glucose 81 mg/dL (80-110); HEMOLYSIS < 15 (0-50); Potassium 4.2 mmol/L (3.4-5.1); Sodium 139 mmol/L (137-145)
== END ==
PROVIDERS: PCP Family Medicine; Referring Provider Urology; Visit Provider Urology
DX: R33.9 Retention of urine, unspecified (principal)
CPT/HCPCS: 36415; 80048

== ENCOUNTER → 2019-12-12 12:23 | Outpatient (CLI) | payer MEDICARE, OTHER, MEDICAID, SELFPAY | PROVIDERS: PCP Family Medicine; Referring Provider Urology; Visit Provider Urology | DX: R33.9 Retention of urine, unspecified (principal) | CPT/HCPCS: 36415; 82565 ==

== ENCOUNTER → 2020-04-07 10:28 | Outpatient (CLI) | payer MEDICARE, OTHER, MEDICAID, SELFPAY ==
--- NOTE | 2020-04-07 | DI.US.S_ITS ---
PROCEDURE: US SCROTUM INDICATIONS: Testicular pain TECHNIQUE: Real-time scanning was performed of the scrotum and testicles, with image documentation. Color and pulse Doppler interrogation was performed of both testicles. COMPARISON: None. FINDINGS: Right: Right testicle measures 5.1 x 3.4 x 4.3 cm although irregular shape and deformity which could be due to mass effect from subcapsular fluid collection described below, or massive dilatation of the right epididymis. Overall this measures 4.2 x 4.5 x 3.8 cm. The head of the epididymis is unremarkable however the body is not well seen and there is a large fluid collection with internal echoes and internal septations present possibly representing dilated epididymis however cannot exclude right testicular subcapsular fluid collection given the deformed appearance of the right testicle. No hydrocele or varicoceles. Overlying scrotal skin is normal in thickness. Left: Testicle is normal in size at 4.4 x 2.2 x 3.2 cm, and homogeneous in echotexture. Epididymis is normal in overall size and morphology. No hydrocele or varicoceles. Overlying scrotal skin is normal in thickness. Doppler: Color and pulse Doppler demonstrate normal and symmetric arterial flow in both testicles. IMPRESSION: Large complex fluid collection adjacent to or involving the right testicle; the exact location is unknown. This could represent subcapsular lesion within the right testicle and differential includes orchitis, cystic testicular neoplasm, abscess, complex tunica albuginea cyst. Alternatively, this could represent massively dilated right epididymis/epididymitis, epididymal abscess with adjacent mass effect on the right testicle. Since testicular neoplasm cannot be excluded recommend close clinical correlation and to urinalysis data. Recommend short interval ultrasound follow-up after treatment in 2-3 weeks to document resolution. Dictated by: Uli Zhao M.D. on 04/07/2020 at 12:18 Approved by: Uli Zhao M.D. on 04/07/2020 at 12:34
[2020-04-07 11:57] LABS: BUN Creatinine Ratio 14.6 (6-22); Blood Urea Nitrogen 30 mg/dL (9-20); Calcium 9.5 mg/dL (8.4-10.2); Carbon Dioxide 27 mmol/L (22-32); Chloride 106 mmol/L (98-107); Estimated Glomerular Filt Rate 32.3 mL/min (>60); Glucose 100 mg/dL (80-110); HEMOLYSIS < 15 (0-50); Potassium 4.4 mmol/L (3.4-5.1); Sodium 139 mmol/L (137-145)
== END ==
PROVIDERS: PCP Family Medicine; Referring Provider Urology; Visit Provider Urology
DX: N18.9 Chronic kidney disease, unspecified (principal); N43.3 Hydrocele, unspecified
CPT/HCPCS: 36415; 76870; 80048

== ENCOUNTER → 2020-05-12 14:55 | Outpatient (CLI) | payer MEDICARE, OTHER, MEDICAID, SELFPAY ==
[2020-05-12] MEDS: COVID-19 VACC #1, MRNA(MOD) 100 MCG/0.5 ML VIAL IM (15:04)
== END ==
PROVIDERS: PCP Family Medicine; Visit Provider Internal Medicine
DX: Z23 Encounter for immunization (principal)
CPT/HCPCS: 0011A; 91301

== ENCOUNTER → 2020-06-09 14:41 | Outpatient (CLI) | payer MEDICARE, OTHER, MEDICAID, SELFPAY ==
[2020-06-09] MEDS: COVID-19 VACC #2, MRNA(MOD) 100 MCG/0.5 ML VIAL IM (14:59)
== END ==
PROVIDERS: PCP Family Medicine; Visit Provider Internal Medicine
DX: Z23 Encounter for immunization (principal)
CPT/HCPCS: 0012A; 91301

== ENCOUNTER → 2020-10-15 14:24 | Outpatient (CLI) | payer MEDICARE, OTHER, MEDICAID, SELFPAY ==
[2020-10-15 15:31] LABS: BUN Creatinine Ratio 12.4 (6-22); Blood Urea Nitrogen 28 mg/dL (9-20); Calcium 9.7 mg/dL (8.4-10.2); Carbon Dioxide 27 mmol/L (22-32); Chloride 108 mmol/L (98-107); Glucose 122 mg/dL (80-110); HEMOLYSIS < 15 (0-50); Potassium 4.4 mmol/L (3.4-5.1); Sodium 140 mmol/L (137-145)
[2020-10-15 15:55] LABS: Appearance Urine UA SL CLOUDY; Bilirubin Urine UA NEGATIVE (NEGATIVE); Color Urine UA YELLOW; Glucose Urine UA NEGATIVE (Negative); Ketones Urine UA NEGATIVE (NEGATIVE); Leukocyte Esterase Urine UA 2+ (NEGATIVE); Nitrite Urine UA POSITIVE (Negative); Occult Blood Urine UA TRACE-INTACT (Negative); Protein Urine UA 2+ (Negative); Specific Gravity Urine UA 1.015 (1.000-1.035); Urobilinogen Urine UA 0.2 E.U./dL (0.2)
[2020-10-15 16:07] LABS: Amorphous Sediment Urine 1+; Bacteria Urine Many (>30); Culture Indicated Urine Specimen Cultured; RBC Urine 0-1/HPF (0-5/HPF); Squamous Epithelial Cell Urine 0-1 /HPF (0-5/HPF); WBC Urine 30-100/HPF (0-5/HPF)
== END ==
PROVIDERS: PCP Family Medicine; Referring Provider Urology; Visit Provider Urology
DX: R33.9 Retention of urine, unspecified (principal)
CPT/HCPCS: 36415; 80048; 81001; 87077; 87086; 87186

== ENCOUNTER → 2020-12-31 13:03 | Outpatient (CLI) | payer MEDICARE, OTHER, MEDICAID, SELFPAY ==
[2020-12-31] MEDS: COVID-19 VACC #3, MRNA(MOD) 50 MCG/0.25 ML VIAL IM (13:08)
== END ==
PROVIDERS: PCP Family Medicine; Visit Provider Internal Medicine
DX: Z23 Encounter for immunization (principal)
CPT/HCPCS: 0013A; 91301